=== PATIENT | male | born 1970 | race Caucasian/White ===

== ENCOUNTER 2017-03-02 14:22 | Inpatient (IN) | payer MEDICAID ==
[~2017-03-02] VITALS: Ht 165.1 cm; Wt 95.3 kg
--- NOTE | 2017-03-02 14:27 | NUR ---
Pt sent from urgent care for high blood pressure and heart rate. Pt went to urgent care for swollen testicles. Pt awake alert oriented denies any chest pain and no sob. Placed on monitor. Elevated HR md made aware. EKG reading at bedside. Placed pt in comfortable position and safety precaution in placed.
--- NOTE | 2017-03-02 14:40 | NUR ---
RAC #18 IV ACCESS BLOOD SAMPLE COLLECTED SENT TO LAB
--- NOTE | 2017-03-02 14:40 | NUR ---
at bedside for eval
--- NOTE | 2017-03-02 14:44 | NUR ---
XRAY AT BEDSIDE
--- NOTE | 2017-03-02 14:45 | NUR ---
JC=[id number] MADE AWARE.
[2017-03-02] MEDS ORDERED: MORPHINE SULFATE INJ 4 MG/ML DISP.SYRIN ONE (14:50)
[2017-03-02] MEDS ORDERED: LIDOCAINE 2% JEL UROJET 10 ML MM ONE (14:52)
--- NOTE | 2017-03-02 14:56 | NUR ---
PT MEDICATED ORDERED.
[2017-03-02] MEDS ORDERED: MORPHINE SULFATE INJ 2 MG/ML DISP.SYRIN IV ONE (15:00)
[2017-03-02 15:01] LABS: BASOPHILS # (AUTO) 0.1 /CMM (0.0-0.2); BASOPHILS % (AUTO) 0.7 % (0.0-2.0); EOSINOPHILS % (AUTO) 0.1 % (0.0-6.0); HEMATOCRIT 44 % (39-51); HEMOGLOBIN 14.8 g/dL (13.5-17.5); LYMPHOCYTES % (AUTO) 22.5 % (20.0-44.0); MEAN CORPUSCULAR HEMOGLOBIN 31 PG (26.0-33.0); MEAN CORPUSCULAR HGB CONC 33 g/dl (31.0-36.0); MEAN CORPUSCULAR VOLUME 94 fL (80-96); MONOCYTES # (AUTO) 0.6 /CMM (0.1-1.30); NEUTROPHILS # (AUTO) 6.2 /CMM (1.8-8.9); NEUTROPHILS % (AUTO) 69.7 % (43.0-81.0); PLATELET COUNT (AUTO) 235 /CMM (150-450); RED BLOOD CELL COUNT(AUTO) 4.73 MIL/uL (4.5-6.0); WHITE BLOOD COUNT (AUTO) 8.9 K/uL (4.3-11.0)
[2017-03-02 15:04] LABS: TROPONIN I 0.103 ng/mL (0.00-0.056)
--- NOTE | 2017-03-02 15:04 | NUR ---
delgado cath inserted as ordered.
[2017-03-02 15:13] LABS: ALBUMIN 3.5 g/dL (3.4-5.0); BILIRUBIN,DIRECT 0.4 mg/dL (0.0-0.2); BILIRUBIN,TOTAL 1.6 mg/dL (0.2-1.0); CREATININE 1.1 mg/dL (0.6-1.3); POTASSIUM 4.1 mmol/L (3.5-5.1); TOTAL PROTEIN, SERUM 7.5 g/dL (6.4-8.2)
[2017-03-02 15:17] LABS: INR 1.22 (0.87-1.13); PROTHROMBIN TIME 13.2 SECS (9.5-12.7)
--- NOTE | 2017-03-02 15:25 | NUR ---
CALLED NURSING SUP. FOR TELE BED
--- NOTE | 2017-03-02 15:47 | NUR ---
DR.RUTHERFORD ASAEL DOOR CLAMP OPERATOR
--- NOTE | 2017-03-02 15:51 | NUR ---
CALLED , TRANSFERRED CALL TO
[2017-03-02] MEDS ORDERED: FUROSEMIDE 40 MG/4 ML VIAL ONE (15:55)
[2017-03-02] MEDS ORDERED: FUROSEMIDE 40 MG/4 ML VIAL IV ONE (16:00)
--- NOTE | 2017-03-02 16:01 | NUR ---
DR LUIS AT BEDSIDE.
--- NOTE | 2017-03-02 16:23 | NUR ---
GAVE REPORT TO LAURYN COAL PIPELINE OPERATOR ROOM 322-2 . TRANSPORT VIA ACLS PROTOCOL.
--- NOTE | 2017-03-02 16:27 | NUR ---
HARMAN ECHO AT BEDSIDE
[2017-03-02] MEDS ORDERED: HYDROCODONE/APAP 5/325MG 1 EACH TABLET PO PRN (16:30)
[2017-03-02] MEDS ORDERED: hydrALAZINE HCL IV 20 MG VIAL IV PRN (16:30)
[2017-03-02] MEDS ORDERED: ZOLPIDEM TARTRATE 5 MG TABLET PO PRN (16:30)
[2017-03-02] MEDS ORDERED: MAG HYDROX/AL HYDROX/SIMETH 30 ML UDC PO PRN (16:30)
[2017-03-02] MEDS ORDERED: MORPHINE SULFATE INJ 2 MG/ML DISP.SYRIN IV PRN (16:30)
[2017-03-02] MEDS ORDERED: Z GUARD REMEDY 2 OZ OINT TP PRN (16:30)
[2017-03-02] MEDS ORDERED: MAGNESIUM HYDROXIDE 30 ML UDC PO PRN (16:30)
--- NOTE | 2017-03-02 16:50 | NUR ---
ASSISTANT CENTER MANAGER NOTES RECEIVED PT FROM ER IN STABLE CONDITION. PT WAS TRANSFERRED TO THE BE SAFELY. NO SOB OR COMPLAINTS OF CHEST PAIN AT THIS TIME. WILL CARRY OUT ORDERS, CONTINUE TO MONITOR AND COMPLETE ADMISSION.
[2017-03-02 17:00] VITALS: BP 147/117
[2017-03-02] MEDS ORDERED: hydrALAZINE HCL 10 MG TABLET PO PRN (17:30)
[2017-03-02] MEDS: CARVEDILOL 3.125 MG TABLET PO SCH (17:34)
[2017-03-02] MEDS: ENOXAPARIN SODIUM 40 MG/0.4 ML DISP.SYRIN SQ SCH (17:35)
[2017-03-02] MEDS: ASPIRIN 325 MG TABLET PO SCH (17:35)
--- NOTE | 2017-03-02 18:10 | NUR ---
TOOL AND DIE MAKER CLOSING NOTES PATIENT RESTING IN BED. A/O X4. PT SHOWED NO SIGNS OF DISTRESS/DISCOMFORT. IV ACCESS PATENT AND INTACT. DENIES ANY PAIN AT THIS TIME. KEPT COMFORTABLE, CLEAN, AND DRY. CALL LIGHT WITHIN REACH AND BED IN LOW POSITION WITH SIDE RAILS X2. FAMILY AT BEDSIDE. WILL ENDORSE TO NIGHTSHIFT NURSE FOR CHANTEL
--- NOTE | 2017-03-02 19:00 | NUR ---
MS RN OPENING NOTES RECEIVED PATIENT IN BED IN STABLE CONDITION, IV SITE INTACT WITH S/S OF INFILTRATION. NO S/S OF DISTRESS NO SOB, NO CHEST PAIN. NO S/S PAIN, SAFE FREE ENVIRONMENT PROVIDED FREE OF CLUTTERS, WILL CONTINUE TO MONITOR, ON LOW BED TO ENSURE SAFETY, CALL LIGHT WITHIN REACH.
[2017-03-02 20:00] VITALS: BP 144/102
[2017-03-02] MEDS: FUROSEMIDE 40 MG/4 ML VIAL IV SCH (21:06)
[2017-03-03] VITALS (7 sets, daily range): BP systolic 122–153; BP diastolic 75–97
--- NOTE | 2017-03-03 06:27 | NUR ---
CLINICAL RESEARCH SPEC CLOSING NOTES PATIENT COMFORTABLY ASLEEP AND EASILY AWAKEN,. FC INTACT DRAINING YELLOW VIA GRAVITY WITH NO SEDIMENTS NO HEMATURIA NO CLOUDINESS. IV SITE NO S/S OF INFILTRATED, PATIENT DENIES PAIN AT THIS TIME. RESPIRATIONS EVEN AND UNLABORED. NO S/S OF ACUTE DISTRESS, NO SOB, NO COUGH, NO CONGESTION, SKIN WARM AND DRY TO TOUCH, AFEBRILE, ALL NURSING CARE NEEDS PROVIDED AND RENDERED, NEEDS ATTENDED AND ANTICIPATED, KEPT CLEAN AND DRY AND COMFORTABLE, BLADDER NOT DISTENDED, GOOD SKIN CARE PROVIDED. ABDOMEN SOFT AND NON TENDER. NO C/O OF CONSTIPATION. ALL DUE MEDS WAS GIVEN TOLERATED. OFFLOAD AT ALL TIMES. FREQUENT VISUAL CHECK DONE FOR SAFETY EVERY 2 HOURS. SAFE HAZARD FREE ENVIRONMENT PROVIDED. CALL LIGHT WITHIN EASY TO REACH, ON LOW BED AT ALL TIMES TO ENSURE SAFETY, WILL ENDORSE TO THE NEXT SHIFT CONTINUE PLAN OF CARE. ATTACH TO TELE MONITOR SHOWING ST 125'S MD MADE AWARE.
[2017-03-03 06:44] LABS: BASOPHILS % (AUTO) 0.5 % (0.0-2.0); EOSINOPHILS # (AUTO) 0.1 /CMM (0.0-0.7); EOSINOPHILS % (AUTO) 0.8 % (0.0-6.0); HEMATOCRIT 41 % (39-51); HEMOGLOBIN 13.5 g/dL (13.5-17.5); LYMPHOCYTES # (AUTO) 2.2 /CMM (0.8-4.8); LYMPHOCYTES % (AUTO) 30.5 % (20.0-44.0); MEAN CORPUSCULAR HEMOGLOBIN 31 PG (26.0-33.0); MEAN CORPUSCULAR HGB CONC 33 g/dl (31.0-36.0); MEAN CORPUSCULAR VOLUME 94 fL (80-96); MONOCYTES # (AUTO) 0.6 /CMM (0.1-1.30); MONOCYTES % (AUTO) 8.4 % (2.0-12.0); NEUTROPHILS # (AUTO) 4.2 /CMM (1.8-8.9); NEUTROPHILS % (AUTO) 59.8 % (43.0-81.0); PLATELET COUNT (AUTO) 220 /CMM (150-450); RDW COEFFICIENT OF VARIATION 14.9 (11.5-15.0); RED BLOOD CELL COUNT(AUTO) 4.41 MIL/uL (4.5-6.0); WHITE BLOOD COUNT (AUTO) 7.1 K/uL (4.3-11.0)
[2017-03-03 07:29] LABS: CALCIUM, SERUM 8.3 mg/dL (8.5-10.1); MAGNESIUM 1.8 mg/dL (1.8-2.4); PHOSPHORUS 3.8 mg/dL (2.5-4.9); POTASSIUM 3.7 mmol/L (3.5-5.1)
--- NOTE | 2017-03-03 07:35 | NUR ---
RN OPENING NOTES TELE RECEIVED REPORT FROM LOGISTICS ANALYST NURSE. PATIENT IS IN BED. BED IN LOW POSITION, LOCKED AND 2 SIDE RAILS ARE UP. NO SIGNS OR SYMPTOMS OF DISTRESS. IV SITE IS INTACT AND POTENT. WILL CONTINUE TO MONITOR AND ASSESS PATIENT THROUGHOUT MY SHIFT.
[2017-03-03] MEDS: CARVEDILOL 3.125 MG TABLET PO SCH ×2 (08:56→17:20)
[2017-03-03] MEDS: ASPIRIN 325 MG TABLET PO SCH (08:56)
[2017-03-03] MEDS: PANTOPRAZOLE 40 MG TABLET.DR PO SCH (08:56)
[2017-03-03] MEDS: FUROSEMIDE 40 MG/4 ML VIAL IV SCH ×2 (08:57→21:18)
[2017-03-03] MEDS: NITROGLYCERIN PACKET 1 GM PACKET TOP SCH ×2 (08:57→21:18)
--- NOTE | 2017-03-03 09:00 | NUR ---
RN NOTES THOMAS THOMAS WAS REMOVED PER DR GARZA ORDER. THOMAS WAS EMPTIES, 250ML OUTPUT. BALLOON WAS DEFLATED WITH 10CC. PATIENT TOLERATED PROCEDURE WELL. NO SIGNS AND SYMPTOMS OF DISTRESS.
--- NOTE | 2017-03-03 09:25 | NUR ---
RN JAMEY TRANSFER PATIENT TRANSFERRED TO [facility]OU[facility] PER DR GARZA'S ORDERS. PATIENT WAS TRANSFERRED CONNECTED TO A MONITOR BY AN RN AND A LITHOPRESS OPERATOR. SINUS TACHY RHYTHM. REPORT GAVE TO KEVIN THE ACCEPTING RN.
[2017-03-03] MEDS ORDERED: AMIODARONE 900 MG in IV D5W 500 ML IV PRN (09:30)
[2017-03-03] MEDS ORDERED: AMIODARONE 150 MG in IV D5W 100 ML IV ONE (09:30)
--- NOTE | 2017-03-03 09:30 | NUR ---
ABDOUL Accepted patient from Telemetry transferred for Amiodarone infusion. Alert oriented, follows command, pleasant. vital stable other than his HR. Afib on monitor with RVR. Mckeon removed 1 hour ago per patient and awaits urination.
[2017-03-03 09:41] LABS: THYROID STIMULATING HORMONE 0.928 uIU/mL (0.358-3.74)
[2017-03-03] MEDS ORDERED: AMIODARONE 900 MG in IV D5W 482 ML IV PRN (10:30)
--- NOTE | 2017-03-03 17:00 | NUR ---
HR sustained on 140's Informed Cardiology of HR remain on 140's despite Amiodarone drip x 6 hours. Prelim Echo done EF 20%. aware, no new order.
[2017-03-03] MEDS: ONDANSETRON HCL/PF 4 MG/2 ML VIAL IVP PRN (19:12)
--- NOTE | 2017-03-03 20:00 | NUR ---
ABDOUL RN NOTES RECEIVED PT IN BED, AWAKE, A/O X4. ON OXYGEN VIA NC AT 2 LPM. GERSON WELL. TELE READS ST AT 127 BPM. ON AMIO DRIP, STARTED AT 1100. PT IS AMBULATORY AND HAS BRP. SKIN IS INTACT, SCROTAL SWELLING NOTED. RAC [address], DRESSING INTACT, NO PAIN VERBALIZED, FLUSHING WELL WITH BLOOD RETURN. CALL LIGHT WITHIN REACH. ALL NEEDS MET.
[2017-03-03] MEDS ORDERED: SECONDARY IV SET 1 EA INFUS.SET MC ONE (21:20)
[2017-03-03] MEDS: ENOXAPARIN SODIUM 40 MG/0.4 ML DISP.SYRIN SQ SCH (21:36)
[2017-03-03] MEDS: ACETAMINOPHEN 325 MG TABLET PO PRN (21:37)
[2017-03-04] VITALS: BP 122/83
[2017-03-04 04:00] VITALS: BP 131/93
[2017-03-04 07:20] LABS: BASOPHILS % (AUTO) 0.4 % (0.0-2.0); EOSINOPHILS % (AUTO) 0.1 % (0.0-6.0); HEMATOCRIT 41 % (39-51); HEMOGLOBIN 13.8 g/dL (13.5-17.5); LYMPHOCYTES # (AUTO) 2.7 /CMM (0.8-4.8); LYMPHOCYTES % (AUTO) 24.8 % (20.0-44.0); MEAN CORPUSCULAR HEMOGLOBIN 31 PG (26.0-33.0); MEAN CORPUSCULAR HGB CONC 33 g/dl (31.0-36.0); MEAN CORPUSCULAR VOLUME 94 fL (80-96); MONOCYTES # (AUTO) 0.8 /CMM (0.1-1.30); MONOCYTES % (AUTO) 7.8 % (2.0-12.0); NEUTROPHILS # (AUTO) 7.2 /CMM (1.8-8.9); NEUTROPHILS % (AUTO) 66.9 % (43.0-81.0); PLATELET COUNT (AUTO) 225 /CMM (150-450); RDW COEFFICIENT OF VARIATION 14.8 (11.5-15.0); RED BLOOD CELL COUNT(AUTO) 4.41 MIL/uL (4.5-6.0); WHITE BLOOD COUNT (AUTO) 10.8 K/uL (4.3-11.0)
[2017-03-04 08:00] VITALS: BP_SYST 130; BP_DIAS 100; BP_DIAS 101
[2017-03-04 08:16] LABS: ALBUMIN 3.1 g/dL (3.4-5.0); BILIRUBIN,TOTAL 1.1 mg/dL (0.2-1.0); CALCIUM, SERUM 8.6 mg/dL (8.5-10.1); CREATININE 1.7 mg/dL (0.6-1.3); MAGNESIUM 1.9 mg/dL (1.8-2.4); PHOSPHORUS 5.7 mg/dL (2.5-4.9); POTASSIUM 4.2 mmol/L (3.5-5.1); TOTAL PROTEIN, SERUM 6.6 g/dL (6.4-8.2)
[2017-03-04 08:20] LABS: TROPONIN I 0.08 ng/mL (0.00-0.056)
[2017-03-04] MEDS: FUROSEMIDE 40 MG/4 ML VIAL IV SCH (08:26)
[2017-03-04] MEDS: PANTOPRAZOLE 40 MG TABLET.DR PO SCH (08:26)
[2017-03-04] MEDS: NITROGLYCERIN PACKET 1 GM PACKET TOP SCH (08:27)
[2017-03-04] MEDS: CARVEDILOL 3.125 MG TABLET PO SCH ×2 (08:27→17:39)
[2017-03-04] MEDS: ASPIRIN 325 MG TABLET PO SCH (08:27)
--- NOTE | 2017-03-04 09:00 | NUR ---
Abnormal Labs Informed Dr. Gan regarding blood sugar on 400's and sodium drop to 129. Accucheck ordered
[2017-03-04] MEDS ORDERED: BUMETANIDE INJ 8 MG in IV NS 0.9% 48 ML IV ONE (11:00)
[2017-03-04] MEDS ORDERED: DEXTROSE 50%-WATER 50 ML DISP.SYRIN IV PRN (11:30)
[2017-03-04] MEDS ORDERED: INSULIN REGULAR, HUMAN 100 UNIT/ML 3 ML VIAL IV ONE (11:30)
[2017-03-04 12:00] VITALS: BP 119/79
[2017-03-04] MEDS: BLOOD SUGAR DIAGNOSTIC 1 EACH STRIP VI SCH ×3 (12:15→21:59)
[2017-03-04] MEDS: INSULIN REGULAR, HUMAN 100 UNIT/ML 3 ML VIAL SQ PRN ×2 (12:16→17:42)
[2017-03-04] MEDS ORDERED: IV NS 0.9% 250 ML IV ONE (12:34)
[2017-03-04] MEDS ORDERED: SECONDARY IV SET 1 EA INFUS.SET MC ONE (12:34)
[2017-03-04 16:00] VITALS: BP 115/74
[2017-03-04] MEDS: ACETAMINOPHEN 325 MG TABLET PO PRN (17:39)
--- NOTE | 2017-03-04 19:30 | NUR ---
ABDOUL/NOTES RECEIVED PT SITTING ON CHAIR,EATING DINNER.OFFERS NO COMPLAINTS.DENIES PAIN OR DISCOMFORT.MONITOR SHOWS STACH.
[2017-03-04 20:00] VITALS: BP 103/80
[2017-03-04] MEDS: ENOXAPARIN SODIUM 40 MG/0.4 ML DISP.SYRIN SQ SCH (20:38)
[2017-03-04] MEDS: NITROGLYCERIN 30 GM TUBE TP SCH (21:11)
[2017-03-04] MEDS: *INSULIN REGULAR(HUMULIN R)HUM 100 UNIT/ML VIAL SQ PRN (21:57)
[2017-03-05] VITALS: BP 106/75
[2017-03-05] MEDS: ACETAMINOPHEN 325 MG TABLET PO PRN (03:00)
--- NOTE | 2017-03-05 03:00 | NUR ---
ABDOUL NOTES TYLENOL 650 MG PO FOR C/0 H/A 02/01.ASSISTED TO BR TO VOID.BACK TO BED W/OUT INCIDENT.
[2017-03-05 04:00] VITALS: BP 112/90
[2017-03-05 06:51] LABS: BASOPHILS % (AUTO) 0.1 % (0.0-2.0); EOSINOPHILS % (AUTO) 0.1 % (0.0-6.0); HEMATOCRIT 41 % (39-51); HEMOGLOBIN 13.6 g/dL (13.5-17.5); LYMPHOCYTES # (AUTO) 1.9 /CMM (0.8-4.8); LYMPHOCYTES % (AUTO) 19.3 % (20.0-44.0); MEAN CORPUSCULAR HEMOGLOBIN 31 PG (26.0-33.0); MEAN CORPUSCULAR HGB CONC 33 g/dl (31.0-36.0); MEAN CORPUSCULAR VOLUME 95 fL (80-96); MONOCYTES # (AUTO) 0.9 /CMM (0.1-1.30); MONOCYTES % (AUTO) 9.3 % (2.0-12.0); NEUTROPHILS # (AUTO) 7.2 /CMM (1.8-8.9); NEUTROPHILS % (AUTO) 71.2 % (43.0-81.0); PLATELET COUNT (AUTO) 218 /CMM (150-450); RDW COEFFICIENT OF VARIATION 15.3 (11.5-15.0); RED BLOOD CELL COUNT(AUTO) 4.34 MIL/uL (4.5-6.0); WHITE BLOOD COUNT (AUTO) 10.1 K/uL (4.3-11.0)
[2017-03-05 07:07] LABS: ALBUMIN 2.9 g/dL (3.4-5.0); BILIRUBIN,TOTAL 0.9 mg/dL (0.2-1.0); CALCIUM, SERUM 8.7 mg/dL (8.5-10.1); CREATININE 1.6 mg/dL (0.6-1.3); PHOSPHORUS 5.3 mg/dL (2.5-4.9); POTASSIUM 4.1 mmol/L (3.5-5.1); TOTAL PROTEIN, SERUM 6.3 g/dL (6.4-8.2)
--- NOTE | 2017-03-05 07:15 | NUR ---
RN MS INITIAL NOTES RECEIVED REPORT AND PT FROM PM NURSE, PT RESTING IN BED, NO ACUTE S/S OF DISTRESS, ON 2L NC SAT ABOVE 97%, RT WRIST 20 G, IV INTACT NO S.S IF INFILTRATION, A&O X3, ALL NEEDS MET, ALL SAFETY MEASURES INITIATED, SIDE RAILS X2, BED LOW AND LOCKED, CALL LIGHT WITHIN REACH, WILL CONTINUE TO MONITOR.
[2017-03-05 08:00] VITALS: BP_SYST 108; BP_SYST 109; BP_DIAS 78
[2017-03-05] MEDS: NITROGLYCERIN 30 GM TUBE TP SCH ×2 (09:00→21:45)
[2017-03-05] MEDS: ASPIRIN 325 MG TABLET PO SCH (09:05)
[2017-03-05] MEDS: PANTOPRAZOLE 40 MG TABLET.DR PO SCH (09:05)
[2017-03-05] MEDS: BLOOD SUGAR DIAGNOSTIC 1 EACH STRIP VI SCH ×4 (09:05→22:07)
[2017-03-05] MEDS: CARVEDILOL 3.125 MG TABLET PO SCH ×2 (09:06→17:44)
[2017-03-05] MEDS: INSULIN REGULAR, HUMAN 100 UNIT/ML 3 ML VIAL SQ PRN ×3 (09:10→17:46)
[2017-03-05] MEDS: FUROSEMIDE 100 MG/10 ML VIAL IV SCH ×3 (12:28→18:39)
[2017-03-05 16:00] VITALS: BP 123/90
[2017-03-05 20:00] VITALS: BP_SYST 111; BP_SYST 132; BP_DIAS 66; BP_DIAS 98
[2017-03-05] MEDS: INSULIN DETEMIR 100 UNIT/ML CARTRIDGE SQ SCH (21:36)
[2017-03-05] MEDS: *INSULIN REGULAR(HUMULIN R)HUM 100 UNIT/ML VIAL SQ PRN (21:39)
[2017-03-05] MEDS: ENOXAPARIN SODIUM 40 MG/0.4 ML DISP.SYRIN SQ SCH (21:43)
[2017-03-05] MEDS ORDERED: INSULIN GLARGINE, 100 UNIT/ML CARTRIDGE SQ SCH (22:00)
[2017-03-06 04:00] VITALS: BP 130/88
[2017-03-06 05:13] VITALS: BP 122/85
[2017-03-06] MEDS: BLOOD SUGAR DIAGNOSTIC 1 EACH STRIP VI SCH ×4 (07:30→22:19)
[2017-03-06 07:37] LABS: BASOPHILS % (AUTO) 0.4 % (0.0-2.0); EOSINOPHILS % (AUTO) 0.2 % (0.0-6.0); HEMATOCRIT 42 % (39-51); HEMOGLOBIN 14.1 g/dL (13.5-17.5); LYMPHOCYTES # (AUTO) 2.4 /CMM (0.8-4.8); LYMPHOCYTES % (AUTO) 21.6 % (20.0-44.0); MEAN CORPUSCULAR HEMOGLOBIN 32 PG (26.0-33.0); MEAN CORPUSCULAR HGB CONC 34 g/dl (31.0-36.0); MEAN CORPUSCULAR VOLUME 94 fL (80-96); MONOCYTES # (AUTO) 1.1 /CMM (0.1-1.30); MONOCYTES % (AUTO) 9.9 % (2.0-12.0); NEUTROPHILS # (AUTO) 7.4 /CMM (1.8-8.9); NEUTROPHILS % (AUTO) 67.9 % (43.0-81.0); PLATELET COUNT (AUTO) 237 /CMM (150-450); RDW COEFFICIENT OF VARIATION 14.9 (11.5-15.0); RED BLOOD CELL COUNT(AUTO) 4.48 MIL/uL (4.5-6.0); WHITE BLOOD COUNT (AUTO) 10.9 K/uL (4.3-11.0)
[2017-03-06 08:00] VITALS: BP_SYST 124; BP_SYST 134; BP_DIAS 63; BP_DIAS 80
[2017-03-06 08:04] LABS: ALBUMIN 2.9 g/dL (3.4-5.0); BILIRUBIN,TOTAL 1.1 mg/dL (0.2-1.0); CALCIUM, SERUM 8.5 mg/dL (8.5-10.1); CREATININE 1.1 mg/dL (0.6-1.3); PHOSPHORUS 3.9 mg/dL (2.5-4.9); POTASSIUM 3.1 mmol/L (3.5-5.1); TOTAL PROTEIN, SERUM 6.4 g/dL (6.4-8.2)
[2017-03-06] MEDS: ASPIRIN 325 MG TABLET PO SCH (09:22)
[2017-03-06] MEDS: CARVEDILOL 3.125 MG TABLET PO SCH ×2 (09:22→16:47)
[2017-03-06] MEDS: PANTOPRAZOLE 40 MG TABLET.DR PO SCH (09:23)
[2017-03-06] MEDS: NITROGLYCERIN 30 GM TUBE TP SCH ×2 (09:33→22:10)
[2017-03-06] MEDS: INSULIN REGULAR, HUMAN 100 UNIT/ML 3 ML VIAL SQ PRN (09:46)
[2017-03-06] MEDS: POTASSIUM CHLORIDE 20 MEQ TAB.PRT.SR PO SCH ×3 (10:17→12:14)
[2017-03-06] MEDS: FUROSEMIDE 100 MG/10 ML VIAL IV SCH ×3 (10:20→16:47)
[2017-03-06] MEDS: ACETAMINOPHEN 325 MG TABLET PO PRN ×2 (10:20→19:40)
[2017-03-06] MEDS: *INSULIN REGULAR(HUMULIN R)HUM 100 UNIT/ML VIAL SQ PRN ×3 (13:02→22:17)
[2017-03-06 16:00] VITALS: BP 103/75
[2017-03-06 17:09] VITALS: BP 103/75
[2017-03-06 20:00] VITALS: BP_SYST 126; BP_DIAS 96; BP_DIAS 98
--- NOTE | 2017-03-06 20:00 | NUR ---
PT RECEIVED NOTE; PT RECEIVED ON BED WITHOUT ANY DISTRESS, PT IS A/O X 4 , IV INTACT AND PATENT, PT IS COMFORTABLE , C/O PAIN 3/10 , PRN TYLENOL PO GIVEN . BED IN LOWEST AND LOCKED POSITION, CALL LIGHT WITHIN REACH, WILL CONTINUE TO MONITOR.
[2017-03-06] MEDS: ENOXAPARIN SODIUM 40 MG/0.4 ML DISP.SYRIN SQ SCH (22:04)
[2017-03-06] MEDS: INSULIN DETEMIR 100 UNIT/ML CARTRIDGE SQ SCH (22:15)
[2017-03-07 04:00] VITALS: BP 125/98
[2017-03-07] MEDS: BLOOD SUGAR DIAGNOSTIC 1 EACH STRIP VI SCH ×4 (06:31→22:01)
--- NOTE | 2017-03-07 06:55 | NUR ---
RN END OF SHIFT NOTE; PT REMAINED STABLE DURING THE SHIFT, NO ANY DISTRESS NOTED, DENIED ANY PAIN, PERIPHERAL IV ON LAC 22 G INTACT AND PATENT, ALL PRESCRIBED MEDS TOLERATED WELL. ALL NEEDS ATTENDED PROMPTLY, KEPT CLEAN AND COMFORTABLE, CALL LIGHT WITHIN REACH .WILL ENDORSE TO NEXT SHIFT FOR CONTINUITY OF CARE.
[2017-03-07 07:26] LABS: BASOPHILS # (AUTO) 0.1 /CMM (0.0-0.2); BASOPHILS % (AUTO) 0.8 % (0.0-2.0); EOSINOPHILS % (AUTO) 0.4 % (0.0-6.0); HEMATOCRIT 41 % (39-51); HEMOGLOBIN 13.5 g/dL (13.5-17.5); LYMPHOCYTES # (AUTO) 2.4 /CMM (0.8-4.8); LYMPHOCYTES % (AUTO) 23.5 % (20.0-44.0); MEAN CORPUSCULAR HEMOGLOBIN 31 PG (26.0-33.0); MEAN CORPUSCULAR HGB CONC 33 g/dl (31.0-36.0); MEAN CORPUSCULAR VOLUME 94 fL (80-96); MONOCYTES # (AUTO) 1.1 /CMM (0.1-1.30); MONOCYTES % (AUTO) 11.2 % (2.0-12.0); NEUTROPHILS # (AUTO) 6.4 /CMM (1.8-8.9); NEUTROPHILS % (AUTO) 64.1 % (43.0-81.0); PLATELET COUNT (AUTO) 224 /CMM (150-450); RED BLOOD CELL COUNT(AUTO) 4.32 MIL/uL (4.5-6.0)
[2017-03-07 07:35] LABS: ALBUMIN 2.8 g/dL (3.4-5.0); CALCIUM, SERUM 8.5 mg/dL (8.5-10.1); PHOSPHORUS 3.8 mg/dL (2.5-4.9); POTASSIUM 3.3 mmol/L (3.5-5.1); TOTAL PROTEIN, SERUM 6.3 g/dL (6.4-8.2)
[2017-03-07 08:00] VITALS: BP 120/75
--- NOTE | 2017-03-07 08:00 | NUR ---
MS RN NOTE PATIENT IN BED, ALL NEEDS ATTENDED ALERT , ORIENTED , ABLE TO FEEDS SELF , LAC HL INTACT, NO S\S INFECTION NOTED ,BED IN LOWEST AND LOCKED POSITION CALL LIGHT WITHIN REACH , PLAN OF CAR4 DISCUSSED WITH PATIENT , WILL CONT TO MONITOR CLOSELY ,NO SOB NOTED
[2017-03-07 09:22] LABS: HEPATITIS A AB, IgM Negative (Negative); HEPATITIS A AB, TOTAL Negative (Negative); HEPATITIS B CORE AB, IgM Negative (Negative); HEPATITIS B CORE AB, TOTAL Negative (Negative); HEPATITIS B SURFACE AB Non Reactive (.); HEPATITIS C VIRUS AB <0.1 s/co ratio (0.0-0.9)
[2017-03-07] MEDS: ASPIRIN 325 MG TABLET PO SCH (09:47)
[2017-03-07] MEDS: PANTOPRAZOLE 40 MG TABLET.DR PO SCH (09:47)
[2017-03-07] MEDS: NITROGLYCERIN 30 GM TUBE TP SCH ×2 (09:48→21:52)
[2017-03-07] MEDS: CARVEDILOL 3.125 MG TABLET PO SCH ×2 (09:48→17:31)
--- NOTE | 2017-03-07 10:00 | NUR ---
MS RN NOTE SEEN BY DR GARZA AWARE THAT K 3.3 WITH NEW ORDER GIVEN
[2017-03-07] MEDS ORDERED: BUMETANIDE INJ 16 MG in IV NS 0.9% 16 ML IV ONE (11:30)
[2017-03-07] MEDS ORDERED: POTASSIUM CHLORIDE 20 MEQ TAB.PRT.SR PO SCH (11:30)
[2017-03-07 12:00] VITALS: BP 120/75
[2017-03-07] MEDS: *INSULIN REGULAR(HUMULIN R)HUM 100 UNIT/ML VIAL SQ PRN ×3 (12:32→22:01)
[2017-03-07] MEDS: POTASSIUM CHLORIDE 20 MEQ TAB.PRT.SR PO SCH ×4 (13:18→16:33)
[2017-03-07] MEDS ORDERED: POTASSIUM CL. PREMIX PERIPHER. 50 ML IV SCH (13:30)
--- NOTE | 2017-03-07 13:30 | NUR ---
MS RN NOTE STARTED ON BUMEX DRIP ORDERED, WILL CONT TO MONITOR CLOSELY
[2017-03-07 16:00] VITALS: BP 122/80
--- NOTE | 2017-03-07 17:00 | NUR ---
MS RNNOTE DIABETIC TEACING DONE AND INSTRUCTION GIVEN UNDERSTOOD, ALL NEEDS ATTENDED
--- NOTE | 2017-03-07 18:51 | NUR ---
TELE RNNOTE UP ON CHAIR , CONT ON BUMEX DRIP ORDERED
[2017-03-07 20:00] VITALS: BP 114/75
--- NOTE | 2017-03-07 20:00 | NUR ---
RN INITIAL NOTE; PT RECEIVED ON BED WITHOUT ANY DISTRESS, PT IS A/O X 4 ,BREATHING EVEN AND UNLABORED. IV INTACT AND PATENT, C/O TOLERABLE PAIN , NON PHARMACOLOGICAL INTERVENTIONS APPLIED. BED IN LOWEST AND LOCKED POSITION, CALL LIGHT WITHIN REACH, WILL CONTINUE TO MONITOR.
[2017-03-07] MEDS: ENOXAPARIN SODIUM 40 MG/0.4 ML DISP.SYRIN SQ SCH (21:48)
[2017-03-07] MEDS: INSULIN DETEMIR 100 UNIT/ML CARTRIDGE SQ SCH (21:59)
[2017-03-08] VITALS: BP 114/86
[2017-03-08 04:00] VITALS: BP 153/113
[2017-03-08] MEDS: ONDANSETRON HCL/PF 4 MG/2 ML VIAL IVP PRN ×3 (04:00→16:53)
[2017-03-08] MEDS: ACETAMINOPHEN 325 MG TABLET PO PRN (04:26)
[2017-03-08] MEDS ORDERED: FUROSEMIDE 40 MG/4 ML VIAL ONE (05:17)
[2017-03-08] MEDS ORDERED: DILTIAZEM HCL 25 MG IV ONE ×2 (05:17→05:33)
[2017-03-08] MEDS ORDERED: DILTIAZEM HCL 25 MG IV IV ONE (05:30)
[2017-03-08] MEDS ORDERED: DILTIAZEM HCL IV 125 MG in IV D5W 100 ML IV PRN (05:30)
[2017-03-08] MEDS ORDERED: FUROSEMIDE 40 MG/4 ML VIAL IV ONE (05:30)
[2017-03-08] MEDS ORDERED: DILTIAZEM HCL 50 MG IV ONE (05:31)
[2017-03-08] MEDS ORDERED: IV SET PRIMARY PUMP SET 1 EA INFUS.SET MC ONE ×2 (05:36→10:23)
[2017-03-08] MEDS ORDERED: IV D5W 100 ML IV ONE (05:36)
--- NOTE | 2017-03-08 05:37 | NUR ---
PT NOTED WITH VOMITING, COLD AND CLAMMY SKIN , SWEATING, V/S MONITORED , BP-153/113, HR 130, RR-16, TEMP 97.6, 02 SAT 98% ON 2 LPM , BLOOD SUGAR 141MG/DL, PT IS LETHARGIC BUT ABLE TO TALK AND ANSWER . PRN ZOFRAN GIVEN FOR VOMIT , STILL NAUSEOUS , STAT EKG SHOWS A-FLUTTER HR 130 , DENIED ANY CHEST PAIN AND DISCOMFORT, BREATHING EVEN AND UNLABORED, DR AHMADI INFORMED ,RECEIVED ORDER TO TRANSFER TO [facility] STATUS , GIVE CARDIZEM 10 MG IV PUSH, START CARDIZEM DRIP 10MG /HR WITHOUT TITRATION, LASIX 40 MEQ IV PUSH, ORDER READ BACK AND VERIFIED. WILL CONTINUE TO MONITOR.
--- NOTE | 2017-03-08 06:00 | NUR ---
RN NOTE; CARDIZEM DRIP STARTED WITH THE RATE OF 10 MG/HR WITHOUT TITRATION, BP-125/96, HR-125, RR-16, TEMP-98.2, PT MORE ALERT /ORIENTED .DENIED ANY CHEST PAIN AT THIS TIME. WILL CONTINUE OT MONITOR.
[2017-03-08] MEDS: INSULIN REGULAR, HUMAN 100 UNIT/ML 3 ML VIAL SQ PRN ×3 (06:45→16:52)
[2017-03-08] MEDS: BLOOD SUGAR DIAGNOSTIC 1 EACH STRIP VI SCH ×4 (06:47→21:15)
--- NOTE | 2017-03-08 07:00 | NUR ---
RN NOTE; RECEIVED PT ON BED , A/O x4. RESPIRATION EVEN AND UNLABORED, NO SOB NOTED, PT ON IS ON CONTINUE CARDIZEM DRIP 10MG /HR , ON TELE SHOWING HR 90'S A-FLUTTER , BRITTNI ANY NAUSEA VOMITING AT THIS TIME, SR UPx3, CALL LIGHT WITHIN EASY REACH , CONTINUE TO MONITOR PT CLOSELY AND NOTIFY MD FOR ANY SIGNIFICANT CHANGES .
--- NOTE | 2017-03-08 07:25 | NUR ---
RN EOS NOTE; PT IS ON CONTINUE CARDIZEM DRIP , SHOWING A-FIB/FLUTTER HR 90s ON TELE MONITOR , PT IS MORE AWAKE, A/O , SKIN WARM TO TOUCH , SATING 97% ON 2 LPM , BREATHING UNLABORED, DENIED ANY NAUSEA/VOMITING/CHEST PAIN. ALL NEEDS ATTENDED PROMPTLY, ENDORSED TO DAY SHIFT NURSE FOR CONTINUITY OF CARE.
[2017-03-08 08:00] VITALS: BP 136/78
[2017-03-08] MEDS: PANTOPRAZOLE 40 MG TABLET.DR PO SCH (08:59)
[2017-03-08] MEDS: ASPIRIN 325 MG TABLET PO SCH (08:59)
[2017-03-08] MEDS: CARVEDILOL 3.125 MG TABLET PO SCH ×2 (09:00→16:54)
[2017-03-08] MEDS: LOSARTAN POTASSIUM 50 MG TABLET PO SCH (09:04)
[2017-03-08] MEDS: FUROSEMIDE 40 MG TABLET PO SCH (09:04)
[2017-03-08] MEDS: POTASSIUM CHLORIDE 20 MEQ TAB.PRT.SR PO SCH (09:04)
[2017-03-08] MEDS: NITROGLYCERIN 30 GM TUBE TP SCH ×2 (09:05→21:00)
--- NOTE | 2017-03-08 09:15 | NUR ---
RN NOTES PT VOMITED ABOUT 50CC WHITISH STOMACH CONTENT , ZOFRAN IV GIVEN PER MD ORDER .CONTINUE TO MONITOR PT CLOSELY.
[2017-03-08 09:42] LABS: BASOPHILS % (AUTO) 0.2 % (0.0-2.0); HEMATOCRIT 47 % (39-51); HEMOGLOBIN 15.3 g/dL (13.5-17.5); LYMPHOCYTES # (AUTO) 1.4 /CMM (0.8-4.8); LYMPHOCYTES % (AUTO) 11.5 % (20.0-44.0); MEAN CORPUSCULAR HEMOGLOBIN 31 PG (26.0-33.0); MEAN CORPUSCULAR HGB CONC 33 g/dl (31.0-36.0); MEAN CORPUSCULAR VOLUME 95 fL (80-96); MONOCYTES # (AUTO) 0.4 /CMM (0.1-1.30); MONOCYTES % (AUTO) 3.7 % (2.0-12.0); NEUTROPHILS # (AUTO) 10.1 /CMM (1.8-8.9); NEUTROPHILS % (AUTO) 84.6 % (43.0-81.0); PLATELET COUNT (AUTO) 265 /CMM (150-450); RDW COEFFICIENT OF VARIATION 15.6 (11.5-15.0); WHITE BLOOD COUNT (AUTO) 11.9 K/uL (4.3-11.0)
--- NOTE | 2017-03-08 10:00 | NUR ---
RN NOTES CALL RECEIVED FROM PT'S REGARDING UPDATES ON PT STATUS . PT STATED THAT DR GARZA INFORMED THE THAT "PT IS GOING HOME TODAY" .
[2017-03-08 10:04] LABS: CALCIUM, SERUM 8.6 mg/dL (8.5-10.1); CREATININE 1.2 mg/dL (0.6-1.3); MAGNESIUM 2.1 mg/dL (1.8-2.4); PHOSPHORUS 4.5 mg/dL (2.5-4.9); POTASSIUM 4.2 mmol/L (3.5-5.1)
--- NOTE | 2017-03-08 10:20 | NUR ---
RN NOTES DR GARZA NOTIFIED REGARDING PT STATUS AND CARDIZEM GTT , NEW ORDER GIVEN , CONTINUE TO MONITOR PT CLOSELY .
[2017-03-08] MEDS ORDERED: AMIODARONE 900 MG in IV D5W 482 ML IV PRN (10:30)
[2017-03-08] MEDS ORDERED: AMIODARONE 150 MG in IV D5W 100 ML IV ONE (10:30)
--- NOTE | 2017-03-08 11:00 | NUR ---
RN NOTES PT STARTED ON AMIODARONE GTT PER DR GARZA ORDER , BP =121/94 HR 84 , PT BRITTNI NAUSEA AT THIS TIME , CONTINUE TO MONITOR .
[2017-03-08 12:00] VITALS: BP 102/72
[2017-03-08] MEDS ORDERED: SIMV20TA6 PO (13:24)
[2017-03-08] MEDS ORDERED: CARV3.122 PO (13:24)
[2017-03-08] MEDS ORDERED: Hydralazine Hcl PO (13:24)
[2017-03-08] MEDS ORDERED: FURO40TA5 PO (13:24)
[2017-03-08] MEDS ORDERED: INSU100I19 SQ (13:24)
[2017-03-08] MEDS ORDERED: Aspirin PO (13:24)
[2017-03-08] MEDS ORDERED: LOSA25TA13 PO (13:24)
[2017-03-08] MEDS ORDERED: GLIP5TAB13 PO (13:25)
[2017-03-08 16:00] VITALS: BP 102/72
--- NOTE | 2017-03-08 16:20 | NUR ---
RN NOTES PT ON TELE CONVERTED TO SR IN 7O'S. STABLE , FAMILY AT THE BEDSIDE ,
--- NOTE | 2017-03-08 17:00 | NUR ---
RN NOTES AMIODORON GTT DECREASED TO .5MG /MIN PER PROTOCAL , PT IS SR IN 70'S ON TELE .
--- NOTE | 2017-03-08 18:13 | NUR ---
RN NOTES PT AT REST , BRITTNI ANY NAUSEA AT THIS TIME , ON AMIO GTT AT .5MG/HR . ON TELE SR IN 70'S , SR UP x3, CALL LIGHT WITHIN EASY REACH . WILL BE ENDORSED TO INDUSTRIAL EQUIPMENT WIRER NURSE .
[2017-03-08 20:00] VITALS: BP_SYST 132; BP_SYST 99; BP_DIAS 70; BP_DIAS 73
[2017-03-08] MEDS: ENOXAPARIN SODIUM 40 MG/0.4 ML DISP.SYRIN SQ SCH (21:15)
[2017-03-08] MEDS: INSULIN DETEMIR 100 UNIT/ML CARTRIDGE SQ SCH (21:18)
[2017-03-08] MEDS: *INSULIN REGULAR(HUMULIN R)HUM 100 UNIT/ML VIAL SQ PRN (21:20)
[2017-03-09] VITALS: BP_SYST 89; BP_SYST 90; BP_DIAS 49
[2017-03-09 04:00] VITALS: BP 93/69
[2017-03-09 08:00] VITALS: BP 110/82
[2017-03-09] MEDS: LOSARTAN POTASSIUM 50 MG TABLET PO SCH (09:00)
[2017-03-09] MEDS: NITROGLYCERIN 30 GM TUBE TP SCH (09:00)
[2017-03-09] MEDS: CARVEDILOL 3.125 MG TABLET PO SCH ×2 (09:00→17:09)
[2017-03-09] MEDS: PANTOPRAZOLE 40 MG TABLET.DR PO SCH (09:08)
[2017-03-09] MEDS: ASPIRIN 325 MG TABLET PO SCH (09:08)
[2017-03-09] MEDS: POTASSIUM CHLORIDE 20 MEQ TAB.PRT.SR PO SCH (09:08)
[2017-03-09] MEDS: BLOOD SUGAR DIAGNOSTIC 1 EACH STRIP VI SCH ×4 (09:08→22:07)
[2017-03-09] MEDS: FUROSEMIDE 40 MG TABLET PO SCH (09:08)
[2017-03-09] MEDS: ONDANSETRON HCL/PF 4 MG/2 ML VIAL IVP PRN (09:56)
[2017-03-09] MEDS: AMIODARONE HCL 200 MG TABLET PO SCH ×2 (10:00→17:09)
[2017-03-09 12:00] VITALS: BP 138/65
[2017-03-09 13:28] LABS: CREATININE 2.8 mg/dL (0.6-1.3); POTASSIUM 5.1 mmol/L (3.5-5.1)
[2017-03-09] MEDS ORDERED: LORAZEPAM 1 MG TABLET PO PRN (15:30)
--- NOTE | 2017-03-09 15:30 | NUR ---
FRONT DESK REPRESENTATIVE: SEEN BY PSYCHIATRIST, DEMETRIO SEVERE DEPRESSION, ORDERS ATIVAN PRN PO. PT'S AT BEDSIDE, REFUSED TO GIVE ATIVAN AT THIS TIME.
[2017-03-09 16:00] VITALS: BP 134/99
--- NOTE | 2017-03-09 16:48 | NUR ---
CASTER HELPER: PT HAVING CONTINUE EPISODES OF EMESIS AFTER HE LITTLE EAT, NOTIFIED DR BHATIA ORDERS TO DO CT ABDOMEN WITHOUT CONTRAST , ALREADY DONE, WILL WAIT FOR RESULTS.
[2017-03-09 20:00] VITALS: BP 126/98
--- NOTE | 2017-03-09 20:00 | NUR ---
MS RN NOTES RECEIVED PTS ON BED AWAKE ALERT AND VERBALLY RESPONSIVE , NO SOB NO DISTRESS NOTED ,FAMILY AT BEDSIDE , UPDATED WITH PTS CURRENT CONDITION , FAMILY REQUESTING IF THEY CAN TALK TO DR GREG HURST MEDICATION -AMIODARONE , WILL ENDORSE TO RN DAY SHIFT REGARDING THE CONCERN ,CT ABDOMEN DONE RESULT RELAYED TO DR AHMADI , NO EPISODE OF N&V AT HIS TIME .ALL DUE MEDS GIVEN ORDER, ALL NEEDS ATTENDED TOO CALL LIGHT WITHIN REACH KEPT PTS DRY CLEAN AND COMFORTABLE.WILL CONTINUE TO MONITOR PTS.V/S STABLE AFEBRILE.
[2017-03-09] MEDS: ACETAMINOPHEN 325 MG TABLET PO PRN (20:27)
[2017-03-09] MEDS: ENOXAPARIN SODIUM 40 MG/0.4 ML DISP.SYRIN SQ SCH (21:07)
[2017-03-09] MEDS: INSULIN DETEMIR 100 UNIT/ML CARTRIDGE SQ SCH (22:07)
[2017-03-09] MEDS: *INSULIN REGULAR(HUMULIN R)HUM 100 UNIT/ML VIAL SQ PRN (22:08)
--- NOTE | 2017-03-09 23:00 | NUR ---
RN NOTES RECEIVED REPORT FROM LULI, FOR PATIENT'S CONTINUITY OF CARE. PATIENT IN BED, SLEEPING COMFORTABLY, NO DISTRESS NOTED. HOB ELEVATED TOLERATED BY PATIENT. ON 2LPM OF O2 VIA NC, RESPIRATION IS EVEN AND UNLABORED WITH NO SOB. WILL MONITOR PATIENT. CALL LIGHT IN REACH.
--- NOTE | 2017-03-09 23:00 | NUR ---
MS RN NOTES TRANSFER CARE &,REPORT GIVEN TO NANCY LACY FOR CONTINUITY OF CARE, PTS V/S STABLE/AFEBRILE . AT THIS TIME NO C/O PAIN NOTED.
[2017-03-10 04:00] VITALS: BP 129/85
--- NOTE | 2017-03-10 05:51 | NUR ---
MS RN NOTES BLOOD SUGAR FOR 10 PM IS 196- LEVEMIR 22 UNITS GIVEN +REGULAR INSULIN 3 UNITS PER SLIDING SCALE . APPLE JUICE AND SANDWICH OFFERED . WILL CONTINUE TO MONITOR.
--- NOTE | 2017-03-10 06:50 | NUR ---
RN CLOSING NOTES PATIENT WITH NO ACUTE DISTRESS OBSERVED OVERNIGHT. PATIENT SLEPT COMFORTABLY. NO C/O PAIN AND DISCOMFORT. NO DISTRESS OBSERVED. PATIENT REFUSED BS CHECK AT THIS TIME, WILL ENDORSE FOR MONITORING. PATIENT NOTED WITH POOR APPETITE, NO SIGNS OF HYPO/HYPERGLYCEMIA. PATIENT'S NEEDS ANTICIPATED AND MET. SAFETY AND COMFORT ENSURED. BED ALARM IN PLACE, BED IN LOW AND LOCKED POSITION. ASSISTED NEEDED WITH ADLS. WILL ENDORSE ACCORDINGLY FOR CONTINUITY OF CARE.
[2017-03-10 07:18] LABS: CREATININE 3.4 mg/dL (0.6-1.3); POTASSIUM 4.9 mmol/L (3.5-5.1)
--- NOTE | 2017-03-10 08:00 | NUR ---
ms rn note patient in bed ,all needs attended alert,orientedxe3 , verbally responsive ,no c\o pain , no nausea ,assisted to eat for breakfast , sitting at bedside .ate 15% of breakfast no vomiting noted , , encourage to drink . lt ac hl intact no s]s infection noted , bed in lowest and locked position mother art bedside requesting to hold amiodarone po stated that want to see dr lópez, vs stable plan of care discussed with patient
--- NOTE | 2017-03-10 09:00 | NUR ---
MS RN NOTE SEEN BY DR BHATIA SPOKE WITH FAMILY
[2017-03-10] MEDS: ASPIRIN 325 MG TABLET PO SCH (09:23)
[2017-03-10] MEDS: POTASSIUM CHLORIDE 20 MEQ TAB.PRT.SR PO SCH (09:23)
[2017-03-10] MEDS: PANTOPRAZOLE 40 MG TABLET.DR PO SCH (09:24)
[2017-03-10] MEDS: FUROSEMIDE 40 MG TABLET PO SCH (09:24)
[2017-03-10] MEDS: CARVEDILOL 3.125 MG TABLET PO SCH ×2 (09:25→17:35)
[2017-03-10] MEDS: LOSARTAN POTASSIUM 50 MG TABLET PO SCH (09:26)
[2017-03-10] MEDS: INSULIN REGULAR, HUMAN 100 UNIT/ML 3 ML VIAL SQ PRN ×3 (09:29→17:39)
--- NOTE | 2017-03-10 09:30 | NUR ---
ms rn note seen by dr chelle rothman,notified that bun 84 also patent refusing to have amiodarone
[2017-03-10] MEDS: BLOOD SUGAR DIAGNOSTIC 1 EACH STRIP VI SCH ×4 (09:31→22:17)
[2017-03-10] MEDS ORDERED: LEVOFLOXACIN 750 MG /D5W 150ML 750 MG in PREMIX 1 EA IV SCH (10:30)
[2017-03-10] MEDS ORDERED: MECLIZINE HCL 12.5 MG TABLET PO PRN (10:30)
--- NOTE | 2017-03-10 11:30 | NUR ---
MS RN NOTE SPOKE WITH DR GARZA AND AWARE THAT PATIENT REFUSING AMIODARONE, STATED THAT WILL CHECK IT OUT
--- NOTE | 2017-03-10 12:00 | NUR ---
MS CRUZ NOTE ENDORSED CARE [facility] UNIT Addendum: 03/10/17 at 1619 by YOBANY CARL RN ENDORSED CARE TO NANCY WOLF
[2017-03-10 20:20] VITALS: BP 112/83
[2017-03-10] MEDS: ENOXAPARIN SODIUM 30 MG/0.3 ML DISP.SYRIN SQ SCH (22:11)
[2017-03-10] MEDS: *INSULIN REGULAR(HUMULIN R)HUM 100 UNIT/ML VIAL SQ PRN (22:14)
[2017-03-10] MEDS: INSULIN DETEMIR 100 UNIT/ML CARTRIDGE SQ SCH (22:16)
[2017-03-11] VITALS: BP 112/83
[2017-03-11] MEDS: BLOOD SUGAR DIAGNOSTIC 1 EACH STRIP VI SCH ×4 (05:32→21:36)
[2017-03-11] MEDS: PANTOPRAZOLE 40 MG TABLET.DR PO SCH (05:33)
[2017-03-11] MEDS: INSULIN REGULAR, HUMAN 100 UNIT/ML 3 ML VIAL SQ PRN ×3 (05:38→18:01)
[2017-03-11 06:05] VITALS: BP_SYST 102; BP_SYST 123; BP_DIAS 66; BP_DIAS 73
[2017-03-11 06:48] VITALS: BP 102/73
--- NOTE | 2017-03-11 07:30 | NUR ---
RN NOTES RECEIVED PATIENT IN BED ALERT, AWAKE, ORIENTED X4 WITH BREATHING NORMAL, EVEN AND UNLABORED. NO SOB NOTED. ON 2L O2 VIA NC, SATURATING WELL. NO ACUTE DISTRESS NOTED. IV IS PATENT AND INTACT, NO INFILTRATION NOTED. BOWEL SOUND PRESENT. PULSES PRESENT. KEPT CLEAN, DRY AND COMFORTABLE. ALL NEEDS ATTENDED. SAFETY MEASURE OBSERVED. CALL LIGHT WITH IN REACH. WILL CONT TO MONITOR.
[2017-03-11 07:38] LABS: BASOPHILS % (AUTO) 0.2 % (0.0-2.0); EOSINOPHILS % (AUTO) 0.2 % (0.0-6.0); HEMATOCRIT 45 % (39-51); HEMOGLOBIN 14.9 g/dL (13.5-17.5); LYMPHOCYTES # (AUTO) 2.3 /CMM (0.8-4.8); LYMPHOCYTES % (AUTO) 22.2 % (20.0-44.0); MEAN CORPUSCULAR HEMOGLOBIN 31 PG (26.0-33.0); MEAN CORPUSCULAR HGB CONC 33 g/dl (31.0-36.0); MEAN CORPUSCULAR VOLUME 95 fL (80-96); MONOCYTES # (AUTO) 1.2 /CMM (0.1-1.30); MONOCYTES % (AUTO) 11.6 % (2.0-12.0); NEUTROPHILS # (AUTO) 6.8 /CMM (1.8-8.9); NEUTROPHILS % (AUTO) 65.8 % (43.0-81.0); PLATELET COUNT (AUTO) 202 /CMM (150-450); RED BLOOD CELL COUNT(AUTO) 4.75 MIL/uL (4.5-6.0); WHITE BLOOD COUNT (AUTO) 10.3 K/uL (4.3-11.0)
[2017-03-11 07:53] LABS: CREATININE 2.5 mg/dL (0.6-1.3); MAGNESIUM 2.5 mg/dL (1.8-2.4); PHOSPHORUS 5.8 mg/dL (2.5-4.9); POTASSIUM 4.1 mmol/L (3.5-5.1)
[2017-03-11 08:00] VITALS: BP 105/80
[2017-03-11] MEDS: CARVEDILOL 3.125 MG TABLET PO SCH ×2 (09:00→17:56)
[2017-03-11] MEDS: ASPIRIN 325 MG TABLET PO SCH (09:47)
[2017-03-11 09:56] LABS: OSMOLALITY,URINE 474 mOS/kg (340-1090)
[2017-03-11 10:07] LABS: CREATININE, URINE 65.9 MG/DL (30.0-125.0); URINE SODIUM, RANDOM < 5 mmol/l (40-220)
[2017-03-11 10:10] LABS: APPEARANCE,URINE CLOUDY (CLEAR); BILIRUBIN,URINE NEGATIVE (NEGATIVE); BLOOD, URINE NEGATIVE Ery/uL (NEGATIVE); COLOR,URINE YELLOW (YELLOW); KETONES,URINE NEGATIVE (NEGATIVE); LEUKOCYTE ESTERASE ,URINE NEGATIVE (NEGATIVE); NITRITE, URINE NEGATIVE (NEGATIVE); PROTEIN,URINE NEGATIVE (NEGATIVE); UGLUCOSE 2+ mg/dL (NEGATIVE)
[2017-03-11 10:19] LABS: RBC,URINE 0-2 /HPF (0-2); WBC,URINE NONE SEEN /HPF (0-3)
[2017-03-11 10:20] LABS: ADD URINE CULTURE YES; BACTERIA,URINE None seen /HPF (None Seen); SQUAMOUS EPITHELIAL CELL,UR Rare /HPF (None Seen); URIC ACID CRYSTALS,URINE Moderate /HPF (None Seen); YEAST,URINE Many /HPF (None Seen)
[2017-03-11 10:21] LABS: URINE AMORPHOUS PHOSPHATES Few /HPF (None Seen)
[2017-03-11 16:00] VITALS: BP_SYST 107; BP_SYST 122; BP_DIAS 69; BP_DIAS 81
--- NOTE | 2017-03-11 19:42 | NUR ---
RN NOTES PATIENT ENDORSED TO NEXT SHIFT IN STABLE CONDITION FOR CONTINUITY OF CARE.
--- NOTE | 2017-03-11 19:44 | NUR ---
RN INITIAL NOTES RECEIVED PATIENT IN BED , SLEEPING, BUT EASILY AROUSABLE TO NAME. PATIENT IS ALERT AND ORIENTED X4 WITH BREATHING NORMAL, EVEN AND UNLABORED. NO SOB NOTED, TOLERATING ROOM AIR WELL. NO ACUTE DISTRESS NOTED. IV IS PATENT AND INTACT, NO INFILTRATION NOTED. BOWEL SOUNDS PRESENT. PULSES PRESENT. KEPT CLEAN, DRY AND COMFORTABLE. ALL NEEDS ATTENDED. SAFETY MEASURES OBSERVED. CALL LIGHT WITHIN EASY REACH. WILL CONTINUE TO CLOSELY MONITOR.
[2017-03-11 20:00] VITALS: BP 107/79
[2017-03-11 20:22] LABS: *HCV QUANT HCV Not Detected IU/mL (.)
[2017-03-11] MEDS: ENOXAPARIN SODIUM 30 MG/0.3 ML DISP.SYRIN SQ SCH (21:38)
[2017-03-11] MEDS: INSULIN DETEMIR 100 UNIT/ML CARTRIDGE SQ SCH (21:38)
[2017-03-11] MEDS: *INSULIN REGULAR(HUMULIN R)HUM 100 UNIT/ML VIAL SQ PRN (21:39)
[2017-03-12] VITALS (14 sets, daily range): BP systolic 100–129; BP diastolic 66–96
--- NOTE | 2017-03-12 06:52 | NUR ---
RN CLOSING NOTES PATIENT RESTING COMFORTABLY IN BED. NO ACUTE EVENTS OVERNIGHT. WILL ENDORSE THE PATIENT TO THE AM SHIFT NURSE FOR CHANTEL
--- NOTE | 2017-03-12 07:15 | NUR ---
RN INITIAL NOTE PT RECEIVED IN BED SLEEPING, NO S/S OF PAIN OR DISCOMFORT. NO S/S OF RESPIRATORY DISTRESS OR SOB. SATING WELL ON ROOM AIR. SKIN IS WARM AND DRY TO TOUCH. LEFT FA IV 22G, FLUSHED AND PATENT. DRESSING C/D/I. SAFETY MEASURES IMPLEMENTED. BED IN LOCKED, LOW POSITION, TWO SIDE RAILS UP. CALL LIGHT AND BELONGINGS WITHIN REACH. WILL CONTINUE TO MONITOR.
[2017-03-12 08:03] LABS: BASOPHILS % (AUTO) 0.1 % (0.0-2.0); EOSINOPHILS % (AUTO) 0.4 % (0.0-6.0); HEMATOCRIT 47 % (39-51); HEMOGLOBIN 15.5 g/dL (13.5-17.5); LYMPHOCYTES # (AUTO) 2.3 /CMM (0.8-4.8); LYMPHOCYTES % (AUTO) 21.3 % (20.0-44.0); MEAN CORPUSCULAR HEMOGLOBIN 31 PG (26.0-33.0); MEAN CORPUSCULAR HGB CONC 33 g/dl (31.0-36.0); MEAN CORPUSCULAR VOLUME 95 fL (80-96); MONOCYTES # (AUTO) 1.1 /CMM (0.1-1.30); MONOCYTES % (AUTO) 10.6 % (2.0-12.0); NEUTROPHILS # (AUTO) 7.2 /CMM (1.8-8.9); NEUTROPHILS % (AUTO) 67.6 % (43.0-81.0); PLATELET COUNT (AUTO) 207 /CMM (150-450); RDW COEFFICIENT OF VARIATION 15.2 (11.5-15.0); RED BLOOD CELL COUNT(AUTO) 4.96 MIL/uL (4.5-6.0); WHITE BLOOD COUNT (AUTO) 10.6 K/uL (4.3-11.0)
[2017-03-12 08:21] LABS: CALCIUM, SERUM 8.3 mg/dL (8.5-10.1); CREATININE 1.8 mg/dL (0.6-1.3); MAGNESIUM 2.5 mg/dL (1.8-2.4); POTASSIUM 3.8 mmol/L (3.5-5.1)
[2017-03-12] MEDS: BLOOD SUGAR DIAGNOSTIC 1 EACH STRIP VI SCH ×4 (08:46→22:29)
[2017-03-12] MEDS: PANTOPRAZOLE 40 MG TABLET.DR PO SCH (08:46)
[2017-03-12] MEDS: ASPIRIN 325 MG TABLET PO SCH (08:46)
[2017-03-12] MEDS: CARVEDILOL 3.125 MG TABLET PO SCH ×2 (08:47→16:45)
--- NOTE | 2017-03-12 09:30 | NUR ---
MS RN NOTE Received patient from Chel CRUZ. Patient with PT at bedside, therapy on going.
--- NOTE | 2017-03-12 10:00 | NUR ---
MS RN NOTE PT at bedside, patient able to sit on the chair, needed assistance on transferring, risk for fall. Family at bedside. Patient and family encouraged to get assistance when patient needs to be transferred.
--- NOTE | 2017-03-12 10:20 | NUR ---
MS RN NOTE S/E by Dr. Foreman, family at bedside, discussed re: the POC. All family and patient's concerned were answered.
[2017-03-12] MEDS: INSULIN REGULAR, HUMAN 100 UNIT/ML 3 ML VIAL SQ PRN ×2 (12:19→17:47)
--- NOTE | 2017-03-12 14:30 | NUR ---
ABDOUL RN NOTE Spoke with Dr. Jimenez, informed MRI result verbally, said patient has multiple strokes old and new infarcts and also hemorrhage. Called Dr. Callahan but no call back, left message to exchange. Called Dr. Medellin and ordered to transfer to [facility].
--- NOTE | 2017-03-12 15:50 | NUR ---
ABDOUL RN NOTE Transferred patient to ICU via bed and ACLS protocol. No any significant changes noted during the transfer, VSS. Report given to Tiffanie CRUZ for CHANTEL. Patient has no c/o discomfort at this time. With dizziness, offered Antivert, said not now. L:eft message to Dr. Callahan per 's request to talk to neuro, left message.
--- NOTE | 2017-03-12 16:00 | NUR ---
ICU/RN- RECEIVED PT. FROM MS-1 PER PROTOCOL BY BED. NURSING FOCUS:ALTERED CEREBRAL TISSUE PERFUSION R/T DIAGNOSIS:STROKE. ROUTINE ICU ADMISSION CARE INITIATED. PT. IS AWAKE, ALERT, EXPRESSIVE OF NEEDS. BREATHING SPONTANEOUSLY TO ROOM AIR. ALERT, ORIENTED X3, PUPILS ARE PERRL AT 3MM EACH.ANGULO SPONTANEOUSLY. WILL CHECK NEURO STATUS Q2HRS. PER PROTOCOL.AFEBRILE. DENIES PAIN OR DISTRESS.
--- NOTE | 2017-03-12 17:00 | NUR ---
ICU/RN-PT. ASLEEP, ON ROOM AIR.NOTED TO DESATURATE TO THE 80,S PT. WOKE UP AND SATS. STARTED TO GO UP TO 95%, NOT IN ANY DISTRESS.
--- NOTE | 2017-03-12 18:00 | NUR ---
ICU/RN- FOOD TRAY SERVED. PT. IS ON DIABETIC DIET.ATE 50% ,GERSON WELL.NO S/S OF ASPIRATION. PRECAUTIONS TAKEN.
--- NOTE | 2017-03-12 19:00 | NUR ---
ICU/RN-PT. STATUS UNCHANGED, REPORT GIVEN TO NANCY BLISS.
--- NOTE | 2017-03-12 21:18 | NUR ---
SIDE LASTER TACK. INITIAL ASSESSMENT. RECEIVED THE PT REST ON THE BED. AWAKE, ALERT, FOLLOW COMMANDS. DIRECTOR CARDIOVASCULAR SHOWING NSR. PT ON ROOM AIR. SAT 98%. NO ACUTE DISTRESS NOTED.WILFRIDO LOWER EXTREMITY SWOLLEN. IV LT HAND 22G. SALINE LOCK. AFEBRILE. HOB ELEVATED. WILL CONTINUE TO MONITOR VITALS.
[2017-03-12] MEDS: ATORVASTATIN 10 MG TABLET PO SCH (22:13)
[2017-03-12] MEDS: INSULIN DETEMIR 100 UNIT/ML CARTRIDGE SQ SCH (22:16)
[2017-03-12] MEDS: *INSULIN REGULAR(HUMULIN R)HUM 100 UNIT/ML VIAL SQ PRN (22:27)
[2017-03-13] VITALS (34 sets, daily range): BP systolic 90–142; BP diastolic 60–109
--- NOTE | 2017-03-13 03:33 | NUR ---
CERTIFIED MASTER LOCKSMITH.AM CARE, ORAL CARE, BED BATH GIVEN. LINEN CHANGED, PT ON ROOM AIR. SAT 98%. NO ACUTE DIST DISTRESS NOTED, RETAIL ACCOUNT SPECIALIST SHOWING NSR, IV LT HAND SALINE LOCK. AFEBRILE. HOB ELEVATED TURN AND REPOSITION Q2H. WILL CONTINUE TO MONITOR VITALS.
[2017-03-13 04:49] LABS: BASOPHILS # (AUTO) 0.1 /CMM (0.0-0.2); BASOPHILS % (AUTO) 1.4 % (0.0-2.0); EOSINOPHILS # (AUTO) 0.1 /CMM (0.0-0.7); EOSINOPHILS % (AUTO) 0.9 % (0.0-6.0); HEMATOCRIT 46 % (39-51); HEMOGLOBIN 14.9 g/dL (13.5-17.5); LYMPHOCYTES # (AUTO) 2.2 /CMM (0.8-4.8); LYMPHOCYTES % (AUTO) 21.6 % (20.0-44.0); MEAN CORPUSCULAR HEMOGLOBIN 31 PG (26.0-33.0); MEAN CORPUSCULAR HGB CONC 33 g/dl (31.0-36.0); MEAN CORPUSCULAR VOLUME 95 fL (80-96); MONOCYTES % (AUTO) 9.8 % (2.0-12.0); NEUTROPHILS # (AUTO) 6.8 /CMM (1.8-8.9); NEUTROPHILS % (AUTO) 66.3 % (43.0-81.0); PLATELET COUNT (AUTO) 206 /CMM (150-450); RDW COEFFICIENT OF VARIATION 15.5 (11.5-15.0); RED BLOOD CELL COUNT(AUTO) 4.82 MIL/uL (4.5-6.0); WHITE BLOOD COUNT (AUTO) 10.2 K/uL (4.3-11.0)
[2017-03-13 05:04] LABS: CALCIUM, SERUM 8.1 mg/dL (8.5-10.1); CREATININE 1.2 mg/dL (0.6-1.3); MAGNESIUM 2.3 mg/dL (1.8-2.4); PHOSPHORUS 3.2 mg/dL (2.5-4.9); POTASSIUM 3.6 mmol/L (3.5-5.1)
[2017-03-13 08:28] LABS: *RAPID PLASMA REAGIN QUAL Non Reactive (Non Reactive)
[2017-03-13] MEDS: BLOOD SUGAR DIAGNOSTIC 1 EACH STRIP VI SCH ×4 (08:54→21:58)
[2017-03-13] MEDS: PANTOPRAZOLE 40 MG TABLET.DR PO SCH (08:54)
[2017-03-13] MEDS: ASPIRIN 325 MG TABLET PO SCH ×2 (08:56→16:38)
[2017-03-13] MEDS: CARVEDILOL 3.125 MG TABLET PO SCH ×2 (09:00→18:24)
[2017-03-13] MEDS: DRONEDARONE HYDROCHLORIDE 400 MG TABLET PO SCH ×2 (09:00→18:24)
--- NOTE | 2017-03-13 09:29 | NUR ---
DR. BHATIA ON THE UNIT. DISCSUSSES WITH PT AND THE PT'S [id number] AT BEDSIDE. SHE IS SUSPECTING THE PATIENT MAY HAVE HEMATOMACHROSIS THAT MAY HAVE CAUSED ALL HIS SYMPTOMS IN THE HOSPITAL. HE WOULD NEED A LIVER BIOPSY FOR THIS. DR. BHATIA ORDERS CASE MGMT CONSULT TO TRANSFER TO HIGHER LEVEL OF CARE FOR LIVER BIOPSY TO DEFINITELY DEFINE THE DX. SHE ALSO PUTS IN LAB SCREENING ORDERS. I CALLED AND LEFT A MESSAGE WITH CATTLE DEALER MERYL PER DR. BHATIA.
--- NOTE | 2017-03-13 09:34 | NUR ---
CALLED LAB FOR TRANSFFERRIN SATURATION LAB TEST IT IS NOT IN [facility]. THEY STATE THEY WILL CHECK AND CALL BACK. Addendum: 03/13/17 at 0936 by GRAYSON BASHIR RN Amended: Links added.
[2017-03-13 09:36] LABS: IRON, SERUM 35 ug/dl (50-175); TOTAL IRON BINDING CAPACITY 261 ug/dl (250-450)
[2017-03-13 09:51] LABS: FERRITIN 524 ng/mL (8-388)
--- NOTE | 2017-03-13 11:07 | NUR ---
Social service consult requested by ICU ELAINE Cavanaugh for medical insurance. Per H&P report by Dr. Gan, pt. is a 47-year-old male with history of diabetes mellitus who presents with dyspnea on exertion worsening for the past 2 weeks, 2 pillow orthopnea, lower extremity and scrotal edema worsening for the past 2 weeks. Patient denies any previous symptoms, has been compliant with his medications generally. No fever, no chills, nausea no vomiting. Pt's father recently after complications of CHF. SHIVA and NANCY Cedeno met with pt's [id number] Roz Hopson. Pt. was being seen by physical therapy. Roz informed SHIVA that pt. has applied for [employer] and it is currently pending. Pt. lives with his Chel who has Cerebral Palsy and is the primary freight clerk for his . 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 Pt. has no children. Pt's Chel works as well but is unable to go to work due to pt. being hospitalized. Pt's Chel is unable to care for pt. at home due to her disability. According to Dr. Foreman, pt. might need a higher level of care for a liver biopsy. NANCY Cedeno in case management is aware of the insurance and medical condition of the pt.
--- NOTE | 2017-03-13 11:15 | NUR ---
PHYSICAL THERAPY IN TO WORK WITH PT. NOTED HIS GAIT IS IMBALANCED WITH LEFT SIDED WEAKNESS. BUT HE IS ABLE AMBULATE WITH ASSISTANCE. HE WILL NEED ACUTE REHAB RECOMMENDED BY BOTH NEUROLOGIST (ON THE UNIT) AND THE PHYSICAL THERAPIST. ALSO NOTED THAT HIS SPEECH IS SOMEWHAT DELAYED, BUT HE IS ABLE TO ANSWER QUESTIONS IN RELATION TO ORIENTATION AOX4. NEUROLOGIST AWARE, DR. COLLIER WAS ON THE UNIT AND DID HER OWN COMPREHENSIVE EVALUATION AND EXPLANATION ABOUT THE STROKE, WITH SUBSEQUENT SHORT AND CONFERENCE TRANSLATOR CARE PLANS. MOTHER IN LAW AT BEDSIDE.
[2017-03-13] MEDS: INSULIN REGULAR, HUMAN 100 UNIT/ML 3 ML VIAL SQ PRN ×2 (13:11→18:27)
--- NOTE | 2017-03-13 13:16 | NUR ---
DR. NANDO TRIVEDI FOR ASPIRIN 325.
--- NOTE | 2017-03-13 20:00 | NUR ---
Patient awake alert and oriented x 4.Patient verbalized i just woke up.VS stable.SR per monitor. With bilateral lower extremities edema and kept elevated.Assisted to bedside chair.Dinner served. Denies pain or dizziness just sob on exertion.With O2 2L NC in place.O2 SAT 98%.Safety maintained with call light at bedside.Patient instructed not to get up without assistance.Verbalized understanding.
--- NOTE | 2017-03-13 21:00 | NUR ---
Patient ate 100% of diet.Assisted eli to bed and made comfortable.Voiding per urinal.
[2017-03-13] MEDS: ATORVASTATIN 10 MG TABLET PO SCH (21:58)
[2017-03-13] MEDS: INSULIN DETEMIR 100 UNIT/ML CARTRIDGE SQ SCH (22:00)
[2017-03-13] MEDS: *INSULIN REGULAR(HUMULIN R)HUM 100 UNIT/ML VIAL SQ PRN (22:02)
[2017-03-14] VITALS (30 sets, daily range): BP systolic 88–143; BP diastolic 49–90
--- NOTE | 2017-03-14 | NUR ---
Patient sleeping on rounds.VS remains stable.SR.NAD NOTED.
--- NOTE | 2017-03-14 04:00 | NUR ---
Patient awake sitting at the edge of the bed.Assisted to bedside chair.Still with sob in exertion. VS stable.Voiding well.Verbalized a sudden onset of dizziness lasting for 3 seconds when standing. Assisted back to bed and made comfortable.Bed bath done.Complete linens changed.Safety precaution maintained with call light at bedside.
[2017-03-14 04:48] LABS: BASOPHILS % (AUTO) 0.4 % (0.0-2.0); EOSINOPHILS # (AUTO) 0.2 /CMM (0.0-0.7); EOSINOPHILS % (AUTO) 1.4 % (0.0-6.0); HEMATOCRIT 46 % (39-51); HEMOGLOBIN 14.8 g/dL (13.5-17.5); LYMPHOCYTES # (AUTO) 2.7 /CMM (0.8-4.8); LYMPHOCYTES % (AUTO) 22.4 % (20.0-44.0); MEAN CORPUSCULAR HEMOGLOBIN 31 PG (26.0-33.0); MEAN CORPUSCULAR HGB CONC 32 g/dl (31.0-36.0); MEAN CORPUSCULAR VOLUME 96 fL (80-96); MONOCYTES # (AUTO) 1.2 /CMM (0.1-1.30); MONOCYTES % (AUTO) 10.4 % (2.0-12.0); NEUTROPHILS # (AUTO) 7.7 /CMM (1.8-8.9); NEUTROPHILS % (AUTO) 65.4 % (43.0-81.0); PLATELET COUNT (AUTO) 197 /CMM (150-450); RED BLOOD CELL COUNT(AUTO) 4.78 MIL/uL (4.5-6.0); WHITE BLOOD COUNT (AUTO) 11.8 K/uL (4.3-11.0)
[2017-03-14 05:11] LABS: CALCIUM, SERUM 8.1 mg/dL (8.5-10.1); CREATININE 1.4 mg/dL (0.6-1.3); MAGNESIUM 2.4 mg/dL (1.8-2.4); PHOSPHORUS 3.5 mg/dL (2.5-4.9); POTASSIUM 3.8 mmol/L (3.5-5.1)
--- NOTE | 2017-03-14 07:26 | NUR ---
INITIAL MARKETING CAMPAIGN ANALYST NOTE RCVD PT SLEEPING AROUSED TO NAME, A/O X4, SHOWING NO S/O DISTRESS OR C/O PAIN AT THIS TIME. WILFRIDO. PUPILS PERRLA, STRENGHT EQUAL ON BLE AND BUE, WEAK GAIT OBSERVED UPON TRANSFER TO CHAIR WITH FWW. SR ON TELE. LEFT FA #22 IV SITE PAINFUL UPON FLUSHING WILL REPLACE LINE. VOIDING TO URINAL. WILL CONTINUE TO MONITOR PT FOR SAFETY AND COMFORT. CALL LIGHT WITHIN REACH. BED IN LOW AND LOCKED POSITION.
[2017-03-14] MEDS: BLOOD SUGAR DIAGNOSTIC 1 EACH STRIP VI SCH ×4 (07:30→22:14)
[2017-03-14] MEDS: PANTOPRAZOLE 40 MG TABLET.DR PO SCH (07:56)
[2017-03-14] MEDS: DRONEDARONE HYDROCHLORIDE 400 MG TABLET PO SCH ×2 (08:00→16:53)
[2017-03-14] MEDS: CARVEDILOL 3.125 MG TABLET PO SCH ×2 (08:00→16:53)
[2017-03-14] MEDS: ASPIRIN 325 MG TABLET PO SCH (08:00)
[2017-03-14] MEDS ORDERED: IV SET PRIMARY PUMP SET 1 EA INFUS.SET MC ONE (10:15)
[2017-03-14] MEDS ORDERED: SECONDARY IV SET 1 EA INFUS.SET MC ONE (10:15)
[2017-03-14] MEDS ORDERED: IV NS 0.9% 250 ML IV ONE (10:15)
[2017-03-14] MEDS: LEVOFLOXACIN 750 MG /D5W 150ML 750 MG in PREMIX 1 EA IV SCH (10:21)
[2017-03-14] MEDS ORDERED: BISACODYL SUPP (10 MG) 10 MG/SUPP.RECT SUPP.RECT RC PRN (10:30)
--- NOTE | 2017-03-14 10:37 | NUR ---
Social service consult requested by Dr. Foreman for State Disability application. SHIVA met with pt's ivdren-jy-mom Roz Hopson who inquired about the State Disability application. SHIVA informed Roz she can bring her the application, however, pt. would have to get the physician report signed by his primary care doctor. However, SHIVA will ask pt's physician Dr. Foreman to complete the physician form of the application. Addendum: 03/14/17 at 1154 by VANESSA SHANNON SHIVA gave NANCY Cedeno, state disability application for Dr. Foreman to complete the physician form.
--- NOTE | 2017-03-14 11:34 | NUR ---
DIRECTOR OF CHILD WELFARE SERVICES NOTE PT HYPOTENSIVE SBP 80'S BP CHECKED MANUALLY STILL 86/67 MAP ABOVE 65. ALFIE, [employer] ENGINEER INFORMED. PT ASYMPTOMATIC. WILL CONTINUE TO MONITOR PT.
[2017-03-14] MEDS: INSULIN REGULAR, HUMAN 100 UNIT/ML 3 ML VIAL SQ PRN ×2 (12:17→16:58)
--- NOTE | 2017-03-14 13:23 | NUR ---
MANAGER PERFORMANCE NOTE SPOKE WITH DR. BHATIA INFORMED HER OF PT'S LOW BP. SHE RECOMMENDED TO GIVE IVF. ORDER ENTERED AND CARRIED OUT. WILL CONTINUE TO MONITOR. Addendum: 03/14/17 at 1535 by SHANA MARINELLI RN STATE DISABILITY FORM FILLED OUT AND SIGNED BY DR. BHATIA. COMPLETED FORM HANDED TO PT'S MOTHER.
[2017-03-14] MEDS ORDERED: IV NS 0.9% 1,000 ML BAG IV ONE (14:00)
[2017-03-14] MEDS: IV NS 0.9% 1,000 ML IV PRN (14:35)
--- NOTE | 2017-03-14 15:33 | NUR ---
EMERGENCY VEHICLE TECHNICIAN NOTE PT RESTING IN BED SHOWING NO S/O DISTRESS OR DIZZINESS WITHOUT MOVEMENT. VITAL SIGNS STABLE. IVF INFUSING. WILL CONTINUE TO MONITOR.
[2017-03-14] MEDS ORDERED: NITROGLYCERIN 30 GM TUBE TP SCH (17:00)
--- NOTE | 2017-03-14 17:44 | NUR ---
BLANKET WINDER OPERATOR NOTE REPORT GIVEN TO AFSATU, RN PT WILL BE TRANSFERRED TO ROOM 323-2. PT AWAKE AND ALERT. SR ON TELE. FAMILY AT BEDSIDE. NO S/O DISTRESS OR C/O PAIN VERBALIZED.
--- NOTE | 2017-03-14 18:32 | NUR ---
PERSONNEL REPRESENTATIVE NOTE DR. WHITLOCK AT BEDSIDE ASSESSING PT. HE WAS INFORMED OF PT'S LOW BP EPISODE EARLIER TODAY. AGREES TO CONTINUE GENTLE HYDRATION OF 1L NS AT 50ML/HR AND CARVEDILOL HELD THIS PM. WILL CONTINUE TO MONITOR PT UNTIL CARE TRANSFERRED TO [facility], RN ON .
--- NOTE | 2017-03-14 18:40 | NUR ---
SLATE MIXER NOTES PT WAS SAFELY TRANSFERRED TO THE UNIT IN STABLE CONDITION. FAMILY AT BEDSIDE. WILL ENDORSE TO NIGHTSHIFT NURSE FOR CHANTEL AND COMPLETION OF ADMISSION PROCESS
--- NOTE | 2017-03-14 18:40 | NUR ---
TRANSFER ICU NOTE PT TRANSFERRED TO 3W PER PROTOCOL. FAMILY AT BEDSIDE. VITAL SIGNS STABLE. [facility], RN RCVD PT VIA BED.
--- NOTE | 2017-03-14 19:33 | NUR ---
TELE/RN OPENING NOTES RECEIVED PATIENT WITH FAMILY MEMBER AT BEDSIDE. TRANSFERED FROM ICU. ALERT, ORIENTED X3. NO S/S OF SOB OR DISTRESS OBSERVED. FOR MONITORING S/P NSTEMI. NO PAIN OBSERVED AND VERBALIZED WILL CHECK B/P AND TELE READING FOR ANY S/S TO REPORT USES URINAL. AMBULATORU WITH ASSISTANCE ON CARB CONTROL DIET. IV ON LEFT AC GAUGE 20. WILL ATTEND TO NEEDS. SKIN INTACT. CALL LIGHTS WITHIN REACH. WILL CONTINUE CHANTEL AND MONITOR.
[2017-03-14] MEDS: ATORVASTATIN 10 MG TABLET PO SCH (20:59)
[2017-03-14] MEDS ORDERED: AMIODARONE HCL 200 MG TABLET PO SCH (21:00)
[2017-03-14] MEDS: INSULIN DETEMIR 100 UNIT/ML CARTRIDGE SQ SCH (22:13)
[2017-03-14] MEDS: *INSULIN REGULAR(HUMULIN R)HUM 100 UNIT/ML VIAL SQ PRN (22:42)
[2017-03-15] VITALS (8 sets, daily range): BP systolic 114–145; BP diastolic 71–96
[2017-03-15 07:02] LABS: CALCIUM, SERUM 8.2 mg/dL (8.5-10.1); CREATININE 1.3 mg/dL (0.6-1.3); MAGNESIUM 2.3 mg/dL (1.8-2.4); PHOSPHORUS 3.6 mg/dL (2.5-4.9)
[2017-03-15 07:07] LABS: BASOPHILS % (AUTO) 0.2 % (0.0-2.0); EOSINOPHILS # (AUTO) 0.1 /CMM (0.0-0.7); EOSINOPHILS % (AUTO) 0.9 % (0.0-6.0); HEMATOCRIT 43 % (39-51); HEMOGLOBIN 14.2 g/dL (13.5-17.5); LYMPHOCYTES # (AUTO) 2.6 /CMM (0.8-4.8); LYMPHOCYTES % (AUTO) 22.2 % (20.0-44.0); MEAN CORPUSCULAR HEMOGLOBIN 32 PG (26.0-33.0); MEAN CORPUSCULAR HGB CONC 33 g/dl (31.0-36.0); MEAN CORPUSCULAR VOLUME 96 fL (80-96); MONOCYTES # (AUTO) 1.1 /CMM (0.1-1.30); MONOCYTES % (AUTO) 9.5 % (2.0-12.0); NEUTROPHILS # (AUTO) 7.8 /CMM (1.8-8.9); NEUTROPHILS % (AUTO) 67.2 % (43.0-81.0); PLATELET COUNT (AUTO) 177 /CMM (150-450); RDW COEFFICIENT OF VARIATION 15.6 (11.5-15.0); RED BLOOD CELL COUNT(AUTO) 4.49 MIL/uL (4.5-6.0); WHITE BLOOD COUNT (AUTO) 11.6 K/uL (4.3-11.0)
--- NOTE | 2017-03-15 07:36 | NUR ---
TELE/RN CLOSING NOTES PATIENT ALERT, ORIENTED X3. AWAKE, ALERTX2. REQUIRE ASSISTANCE TO TRANSFER FROM BED TO CHAIR SAFELY. ASSISTED . WEIGHED IN SCALE , ENDORSE TO AM RN REGARDING CHANTEL.
--- NOTE | 2017-03-15 07:40 | NUR ---
MS RN RECEIVED ON BED, SLEEPING, NOT IN ANY FORM OF DISTRESS, RESPIRATIONS EVEN AND UNLABORED,NO SOB NOTED, LUNGS ARE CLEAR, ABDOMEN SOFT,POSITIVE BOWEL SOUNDS, DENIES PAIN AT THIS TIME,ALL NEEDS ATTENDED.
--- NOTE | 2017-03-15 08:30 | NUR ---
MS CRUZ BREAKFAST SERVED,DUE MEDS GIVEN.TOLERATED WELL.
[2017-03-15] MEDS: BLOOD SUGAR DIAGNOSTIC 1 EACH STRIP VI SCH ×4 (08:38→21:45)
[2017-03-15] MEDS: ASPIRIN 325 MG TABLET PO SCH (08:38)
[2017-03-15] MEDS: CARVEDILOL 3.125 MG TABLET PO SCH ×2 (08:39→17:04)
[2017-03-15] MEDS: PANTOPRAZOLE 40 MG TABLET.DR PO SCH (08:40)
[2017-03-15] MEDS: LEVOFLOXACIN 750 MG /D5W 150ML 750 MG in PREMIX 1 EA IV SCH (11:08)
--- NOTE | 2017-03-15 11:10 | NUR ---
MS RN WAS SEEN AND EXAMINED BY DR. JANNETTE SHARPE AND CARRIED OUT.
[2017-03-15] MEDS: INSULIN REGULAR, HUMAN 100 UNIT/ML 3 ML VIAL SQ PRN ×3 (12:51→21:43)
[2017-03-15 17:03] LABS: CALCIUM, SERUM 7.9 mg/dL (8.5-10.1); CREATININE 1.4 mg/dL (0.6-1.3); POTASSIUM 3.8 mmol/L (3.5-5.1)
[2017-03-15] MEDS: AMIODARONE HCL 200 MG TABLET PO SCH (17:04)
--- NOTE | 2017-03-15 18:18 | NUR ---
MS RN ON BED,NO DISTRESS NOTED, ALL NEEDS ATTENDED.
--- NOTE | 2017-03-15 19:00 | NUR ---
RN NOTE RECEIVED REPORT. PT AAOX4. NO C/O OF ANY PAIN OR DISCOMFORT. BREATHING NON-LABORED AND EVEN. DENIES SOB/CP. IV INTACT AND PATENT. TELE SHOWS SR IN 70'S. SAFETY AND COMFORT MEASURES RENDERED, WILL CONT TO MONITOR.
[2017-03-15] MEDS: INSULIN DETEMIR 100 UNIT/ML CARTRIDGE SQ SCH (21:42)
[2017-03-15] MEDS: ATORVASTATIN 10 MG TABLET PO SCH (21:45)
[2017-03-16] VITALS (7 sets, daily range): BP systolic 126–155; BP diastolic 89–108
[2017-03-16] MEDS: IV NS 0.9% 1,000 ML IV PRN (03:03)
--- NOTE | 2017-03-16 05:05 | NUR ---
RN NOTE NOTIFIED MD CHRONOMETER ADJUSTER ABOUT PT BEING IN A-FLUTTER AT 110. NO NEW ORDERS AT THIS TIME. WILL CONT TO MONITOR. Addendum: 03/16/17 at 0510 by JASIEL NUNES RN PT REPORTS NO DIZZINESS/CP/SOB. NON-DIAPHORETIC ON NC @ 2L
--- NOTE | 2017-03-16 06:28 | NUR ---
RN NOTE PT AAOX4, FORGETFUL. NO C/O CP/SOB/DIZZINESS AT THIS TIME. ON 2L NC, NO S/S OF RESPIRATORY DISTRESS. PT NON-DIAPHOETIC, SKIN WARM TO TOUCH. RESTING COMFORTABLY IN BED. TELE SHOWING A-FLUTTER 110'S, AWARE AROUND 0500, WITH NO NEW ORDERS. IV INTACT AND PATENT TOLERATING FLUIDS WELL. ALL NEEDS ATTENDED TO, CALL LIGHT IN REACH. WILL CONT TO MONITOR.
[2017-03-16 07:26] LABS: BASOPHILS % (AUTO) 0.2 % (0.0-2.0); EOSINOPHILS # (AUTO) 0.2 /CMM (0.0-0.7); EOSINOPHILS % (AUTO) 1.7 % (0.0-6.0); HEMATOCRIT 45 % (39-51); HEMOGLOBIN 14.6 g/dL (13.5-17.5); LYMPHOCYTES # (AUTO) 2.1 /CMM (0.8-4.8); MEAN CORPUSCULAR HEMOGLOBIN 31 PG (26.0-33.0); MEAN CORPUSCULAR HGB CONC 32 g/dl (31.0-36.0); MEAN CORPUSCULAR VOLUME 95 fL (80-96); MONOCYTES # (AUTO) 0.9 /CMM (0.1-1.30); MONOCYTES % (AUTO) 7.5 % (2.0-12.0); NEUTROPHILS # (AUTO) 8.3 /CMM (1.8-8.9); NEUTROPHILS % (AUTO) 72.6 % (43.0-81.0); PLATELET COUNT (AUTO) 189 /CMM (150-450); RDW COEFFICIENT OF VARIATION 15.4 (11.5-15.0); RED BLOOD CELL COUNT(AUTO) 4.75 MIL/uL (4.5-6.0); WHITE BLOOD COUNT (AUTO) 11.5 K/uL (4.3-11.0)
--- NOTE | 2017-03-16 07:30 | NUR ---
initial note a+o x4, verbalizes needs. skin warm and dry. LAC iv patent. no complaints of pain, no SOB, no chest pain. tele monitor reading ST 117. continent with urinal. discussed plan of care. call light in reach.
[2017-03-16 07:50] LABS: CALCIUM, SERUM 8.2 mg/dL (8.5-10.1); CREATININE 1.2 mg/dL (0.6-1.3); MAGNESIUM 1.9 mg/dL (1.8-2.4); POTASSIUM 3.7 mmol/L (3.5-5.1)
[2017-03-16] MEDS: CARVEDILOL 3.125 MG TABLET PO SCH ×2 (08:35→17:17)
[2017-03-16] MEDS: ASPIRIN 325 MG TABLET PO SCH (08:35)
[2017-03-16] MEDS: PANTOPRAZOLE 40 MG TABLET.DR PO SCH (08:35)
[2017-03-16] MEDS: AMIODARONE HCL 200 MG TABLET PO SCH ×2 (08:36→17:16)
[2017-03-16] MEDS: BLOOD SUGAR DIAGNOSTIC 1 EACH STRIP VI SCH ×4 (08:36→21:51)
[2017-03-16] MEDS: LEVOFLOXACIN 750 MG /D5W 150ML 750 MG in PREMIX 1 EA IV SCH (09:03)
[2017-03-16] MEDS: INSULIN REGULAR, HUMAN 100 UNIT/ML 3 ML VIAL SQ PRN ×3 (12:11→21:59)
[2017-03-16 17:17] LABS: CALCIUM, SERUM 7.8 mg/dL (8.5-10.1); CREATININE 1.1 mg/dL (0.6-1.3); POTASSIUM 3.9 mmol/L (3.5-5.1)
--- NOTE | 2017-03-16 19:30 | NUR ---
RN NOTES; RECEIVED PATIENT AWAKE ON BED LYING COMFORTABLY,RELAX,NO COMPLAINTS OF ANY PAIN OR DISCOMFORT,VERY COOPERATIVE,A/OX4,ON O2 AT 2L/MIN, SCD WORKING,TELE-SINUS TACHYCARDIA-115;FALL, SAFETY AN ASPIRATION PRECAUTION OBSERVE,CALL LIGHT WITHIN REACH, BED LOW AND LOCKED.
--- NOTE | 2017-03-16 19:34 | NUR ---
closing note patient stable at end of shift. breathing and LOC wnl. denies dizziness and chest pain. endorsed to night nurse. call light in reach
[2017-03-16] MEDS: INSULIN DETEMIR 100 UNIT/ML CARTRIDGE SQ SCH (21:54)
[2017-03-16] MEDS: ATORVASTATIN 10 MG TABLET PO SCH (21:57)
--- NOTE | 2017-03-16 22:12 | NUR ---
RN NOTES; ABLE TO SLEEP AT SHORT INTERVALS,BLOOD SUGAR CHECK-143, INSULIN GIVEN PER SCALE AND HS DOSE SCHEDULED, OFFERED MIDNIGHT SNACK, WILL CONTINUE TO MONITOR FOR SIGN OF HYPER/HYPOGLYCEMIA, CALL LIGHT WITHIN REACH.
[2017-03-17] VITALS (8 sets, daily range): BP systolic 124–138; BP diastolic 84–105
--- NOTE | 2017-03-17 03:30 | NUR ---
RN NOTES; ASLEEP AT SHORT INTERVALS, NO PAIN OR DISCOMFORT, CALL LIGHT WITH IN REACH.
[2017-03-17] MEDS: BLOOD SUGAR DIAGNOSTIC 1 EACH STRIP VI SCH ×4 (05:50→21:40)
[2017-03-17] MEDS: INSULIN REGULAR, HUMAN 100 UNIT/ML 3 ML VIAL SQ PRN ×3 (05:51→16:34)
--- NOTE | 2017-03-17 05:52 | NUR ---
RN NOTES; BLOOD SUGAR CHECKED-101 NO INSULIN GIVEN PER SCALE,PATIENT IS SITTING COMFORTABLY AT THE BED SIDE CHAIR, NO COMPLAINTS.
--- NOTE | 2017-03-17 06:45 | NUR ---
RN NOTES: SITTING ON HIS BED SIDE, NO PAIN OR ANY DISCOMFORT, ENDORSE TO INCOMING SHIFT HIS BLOOD PRESSURE IS A BIT ELEVATED, ON CLOSE MONITORING,STILL ON A.FIB RATE-81.CALL LIGHT WITHIN REACH.
--- NOTE | 2017-03-17 07:30 | NUR ---
FURNACE OPERATOR AND TENDER NOTES RECEIVED PT AWAKE SITTING ON THE CHAIR, ALERT AND OX3, BREATHING EVEN AND NON LABORED, PT DENIES ANY PAIN OR HEADACHE AT THIS TIME. ON TELE MONITORING HR 72. PATIENT REMINDED TO USE HIS CALL LIGHT IF HE NEED HELP/ASSISTANCE. WILL CONTINUE TO MONITOR.
[2017-03-17] MEDS: ASPIRIN 325 MG TABLET PO SCH (08:08)
[2017-03-17] MEDS: AMIODARONE HCL 200 MG TABLET PO SCH ×2 (08:08→16:29)
[2017-03-17] MEDS: PANTOPRAZOLE 40 MG TABLET.DR PO SCH (08:08)
[2017-03-17] MEDS: CARVEDILOL 3.125 MG TABLET PO SCH ×2 (08:09→16:29)
[2017-03-17 08:11] LABS: BASOPHILS % (AUTO) 0.4 % (0.0-2.0); EOSINOPHILS # (AUTO) 0.1 /CMM (0.0-0.7); EOSINOPHILS % (AUTO) 1.7 % (0.0-6.0); HEMATOCRIT 43 % (39-51); HEMOGLOBIN 13.9 g/dL (13.5-17.5); LYMPHOCYTES # (AUTO) 2.5 /CMM (0.8-4.8); LYMPHOCYTES % (AUTO) 27.9 % (20.0-44.0); MEAN CORPUSCULAR HEMOGLOBIN 31 PG (26.0-33.0); MEAN CORPUSCULAR HGB CONC 32 g/dl (31.0-36.0); MEAN CORPUSCULAR VOLUME 95 fL (80-96); MONOCYTES # (AUTO) 0.8 /CMM (0.1-1.30); MONOCYTES % (AUTO) 9.3 % (2.0-12.0); NEUTROPHILS # (AUTO) 5.4 /CMM (1.8-8.9); NEUTROPHILS % (AUTO) 60.7 % (43.0-81.0); PLATELET COUNT (AUTO) 181 /CMM (150-450); RDW COEFFICIENT OF VARIATION 15.6 (11.5-15.0); RED BLOOD CELL COUNT(AUTO) 4.48 MIL/uL (4.5-6.0); WHITE BLOOD COUNT (AUTO) 8.9 K/uL (4.3-11.0)
--- NOTE | 2017-03-17 08:30 | NUR ---
OTHER SPORTS COACH OR INSTRUCTOR NOTES ALL DUE MEDS GIVEN. LATEST BP 129/84 HR 72. DENIES ANY DISCOMFORT AT THIS TIME. WILL CONTINUE TO MONITOR
[2017-03-17 08:36] LABS: MAGNESIUM 1.9 mg/dL (1.8-2.4); PHOSPHORUS 3.3 mg/dL (2.5-4.9); POTASSIUM 3.9 mmol/L (3.5-5.1)
--- NOTE | 2017-03-17 09:00 | NUR ---
MACHINE FILLER SERVICER NOTES S/B DR. BHATIA WITH NO NEW ORDERS MADE.
[2017-03-17] MEDS: LEVOFLOXACIN 750 MG /D5W 150ML 750 MG in PREMIX 1 EA IV SCH (09:53)
[2017-03-17] MEDS ORDERED: SECONDARY IV SET 1 EA INFUS.SET MC ONE (10:13)
[2017-03-17 17:30] LABS: CALCIUM, SERUM 7.8 mg/dL (8.5-10.1); CREATININE 1.2 mg/dL (0.6-1.3); POTASSIUM 4.3 mmol/L (3.5-5.1)
--- NOTE | 2017-03-17 19:15 | NUR ---
RN OPEN NOTES RECEIVED PATIENT AWAKE IN BED. A/O X3. NO SIGNS OF DISTRESS OR DISCOMFORT. BREATHING EVEN AND UNLABORED. ON 2LPM O2 VIA NC. ON TELE WITH SR HR 74 NOTED. IV ACCESS IN LAC, PATENT AND INTACT, NO SIGNS OF REDNESS OR INFILTRATION. DENIES ANY PAIN. BED IN LOW LOCKED POSITION WITH SIDE RAILS X2. CALL LIGHT WITHIN REACH. WILL CONTINUE TO MONITOR.
--- NOTE | 2017-03-17 19:26 | NUR ---
DUMPLING MACHINE OPERATOR NOTES ALL NEEDS ATTENDED AND ANTICIPATED. NO C/O MADE. ENDORSED TO INCOMING SHIFT FOR CONTINUITY OF CARE.
[2017-03-17] MEDS: ATORVASTATIN 10 MG TABLET PO SCH (21:39)
[2017-03-17] MEDS: *INSULIN REGULAR(HUMULIN R)HUM 100 UNIT/ML VIAL SQ PRN (21:42)
[2017-03-17] MEDS: INSULIN DETEMIR 100 UNIT/ML CARTRIDGE SQ SCH (21:42)
[2017-03-18] VITALS (7 sets, daily range): BP systolic 115–140; BP diastolic 71–96
--- NOTE | 2017-03-18 03:35 | NUR ---
RN NOTES PATIENT DIAPHORETIC AND STATED HE FELT REALLY TIRED, BS 49. ADMINISTERED DEXTROSE 50ML ORDERED FOR BS <60. WILL CONTINUE TO MONITOR.
[2017-03-18] MEDS: BLOOD SUGAR DIAGNOSTIC 1 EACH STRIP VI SCH ×4 (06:27→21:17)
--- NOTE | 2017-03-18 06:55 | NUR ---
RN CLOSING NOTES PATIENT RESTING IN BED EASILY AROUSABLE TO NAME. A/O X3. NO SIGNS OF DISTRESS OR DISCOMFORT. BREATHING EVEN AND UNLABORED. ON TELE WITH SB HR 56 NOTED. IV ACCESS IN LAC, PATENT AND INTACT, NO SIGNS OF REDNESS OR INFILTRATION. DENIES ANY PAIN. NO SIGNIFICANT CHANGES THROUGH THE NIGHT. ALL NEEDS MET. BED IN LOW LOCKED POSITION WITH SIDE RAILS X2. CALL LIGHT WITHIN REACH. WILL ENDORSE TO AM SHIFT FOR CHANTEL.
--- NOTE | 2017-03-18 07:40 | NUR ---
MS RN OPENING NOTE PATIENT IS ALERT AND ORIENTED x4. NO PAIN AT THIS TIME. NO SOB OR DISTRESS NOTED. CALL LIGHT WITHIN REACH. SAFETY MEASURES IMPLEMENTED. BED IN LOWEST POSITION WITH SIDERAILS UP X2. IV INTACT AND PATENT NO REDNESS OR SWELLING NOTED. AMBULATORY WITH ASSISTANCE. ABLE TO COMMUNICATE NEEDS. WILL CONTINUE TO MONITOR
[2017-03-18 08:00] LABS: CALCIUM, SERUM 8.5 mg/dL (8.5-10.1); CREATININE 1.1 mg/dL (0.6-1.3); PHOSPHORUS 3.5 mg/dL (2.5-4.9)
[2017-03-18] MEDS: ASPIRIN 325 MG TABLET PO SCH (08:04)
[2017-03-18] MEDS: PANTOPRAZOLE 40 MG TABLET.DR PO SCH (08:04)
[2017-03-18] MEDS: CARVEDILOL 3.125 MG TABLET PO SCH ×2 (08:06→16:50)
[2017-03-18] MEDS: AMIODARONE HCL 200 MG TABLET PO SCH ×2 (08:06→16:49)
[2017-03-18] MEDS: LEVOFLOXACIN (750 MG) 750 MG TABLET PO SCH (09:26)
[2017-03-18] MEDS: INSULIN REGULAR, HUMAN 100 UNIT/ML 3 ML VIAL SQ PRN ×2 (12:19→17:24)
[2017-03-18 17:01] LABS: CALCIUM, SERUM 8.1 mg/dL (8.5-10.1); CREATININE 1.3 mg/dL (0.6-1.3); POTASSIUM 4.2 mmol/L (3.5-5.1)
--- NOTE | 2017-03-18 18:23 | NUR ---
RN CLOSING NOTE PATIENT IS AWAKE IN BED. NO PAIN AT THIS TIME. NO SIGNIFICANT CHANGES. NO SOB OR DISTRESS NOTED. CALL LIGHT WITHIN REACH AT ALL TIMES. SAFETY MEASURES IMPLEMENTED. ABLE TO COMMUNICATE NEEDS. POSSIBLE DISCHARGE TO [facility] TOMORROW. WILL ENDORSE TO LABORER GOLD LEAF NURSE
--- NOTE | 2017-03-18 19:10 | NUR ---
RN OPEN NOTES RECEIVED PATIENT AWAKE IN BED. A/O X3. NO SIGNS OF DISTRESS OR DISCOMFORT. BREATHING EVEN AND UNLABORED. ON TELE WITH SR HR 69 NOTED. IV ACCESS IN LAC, PATENT AND INTACT, NO SIGNS OF REDNESS OR INFILTRATION. DENIES ANY PAIN. BED IN LOW LOCKED POSITION WITH SIDE RAILS X2. CALL LIGHT WITHIN REACH. WILL CONTINUE TO MONITOR.
[2017-03-18] MEDS: INSULIN DETEMIR 100 UNIT/ML CARTRIDGE SQ SCH (21:19)
[2017-03-18] MEDS: *INSULIN REGULAR(HUMULIN R)HUM 100 UNIT/ML VIAL SQ PRN (21:19)
[2017-03-18] MEDS: ATORVASTATIN 10 MG TABLET PO SCH (21:22)
[2017-03-19] VITALS: BP_SYST 126; BP_SYST 128; BP_DIAS 83
[2017-03-19 04:00] VITALS: BP 129/87
[2017-03-19 04:28] VITALS: BP 123/87
--- NOTE | 2017-03-19 06:43 | NUR ---
RN NOTES PATIENT BS 58, REFUSED DEXTROSE X3 WANTS ORANGE JUICE AND LEXUS CRACKERS INSTEAD. NO SIGNS OR SYMPTOMS OF HYPOGLYCEMIA. WILL RECHECK BS AND CONTINUE TO MONITOR.
[2017-03-19 07:05] VITALS: BP 145/95
--- NOTE | 2017-03-19 07:07 | NUR ---
RECHECK BS 79. WILL CONTINUE TO MONITOR.
--- NOTE | 2017-03-19 07:07 | NUR ---
RN CLOSING NOTES PATIENT AWAKE SITTING IN CHAIR. A/O X3. NO SIGNS OF DISTRESS OR DISCOMFORT. BREATHING EVEN AND UNLABORED. ON TELE WITH SR HR 70 NOTED. IV ACCESS IN LAC, PATENT AND INTACT, NO SIGNS OF REDNESS OR INFILTRATION. DENIES ANY PAIN. ALL NEEDS MET. NO SIGNIFICANT CHANGES THROUGH THE NIGHT. BED IN LOW LOCKED POSITION WITH SIDE RAILS X2. CALL LIGHT WITHIN REACH. WILL ENDORSE TO AM SHIFT FOR CHANTEL.
[2017-03-19] MEDS: BLOOD SUGAR DIAGNOSTIC 1 EACH STRIP VI SCH (07:30)
--- NOTE | 2017-03-19 07:30 | NUR ---
BIOLOGICAL SCIENCE AIDE OPENING RECEIVED PATIENT SITTING IN CHAIR. DENIES SOB, DIFFICUTLY BREATHING OR PAIN AT THIS TIME. PATIENT STATES NO NEEDS AND WILL BE DISCHARGED TODAY HE SAYS TO [facility]. PATIENT APPEARS STABLE. CALL LIGHT IN REACH ALL BELONGINGS IN REACH. WILL ROUND Q2H OR LESS
--- NOTE | 2017-03-19 07:50 | NUR ---
MS RN NOTES ACCUCHECK WAS COMPLETED BY NIGHT RN JUST NOT SCANNED
[2017-03-19 08:00] VITALS: BP 149/105
[2017-03-19] MEDS: ASPIRIN 325 MG TABLET PO SCH (08:09)
[2017-03-19] MEDS: PANTOPRAZOLE 40 MG TABLET.DR PO SCH (08:09)
[2017-03-19] MEDS: AMIODARONE HCL 200 MG TABLET PO SCH (08:10)
[2017-03-19 08:11] VITALS: BP 149/105
[2017-03-19] MEDS: CARVEDILOL 3.125 MG TABLET PO SCH (08:11)
[2017-03-19] MEDS: LEVOFLOXACIN (750 MG) 750 MG TABLET PO SCH (10:24)
--- NOTE | 2017-03-19 10:30 | NUR ---
MS RN NOTES PATIENT HAS REDNESS AND A SCAB WITH A BRUISE AROUND IT. PATIENT DOES NOT WANT PHOTO TO BE TAKEN.
--- NOTE | 2017-03-19 11:45 | NUR ---
MS GRAINING OPERATOR PATIENT STABLE NO COMPLICATIONS NO CHANGES. PATIENT AND FAMILY EDUCATED ON DISCHARGE MATERIAL AND STATED UNDERSTANDING. BELONGINGS LIST SIGNED AND ALL ACCOUNTED FOR. PATIENT IV REMOVED PRESSURE AND DRESSING APPLIED NO BLEEDING NOTED. PATIENT REPORT CALLED TO NANCY RAZA AT [facility]. PATIENT ASSITED TO [facility] STABLE NO COMPLICATIONS.
== END 2017-03-19 11:45 | DRG 190 ==
LOC: ER 14:22 → TELE 16:26 → TELE1 03-03 09:47 → TELE-TD 03-03 09:50 → TELE1 03-04 10:46 → MEDSG1 03-05 07:28 → TELE-TD 03-08 05:59 → MEDSG1 03-09 18:21 → TELE1 03-12 14:14 → TELE-TD 03-12 14:27 → ICU 03-12 15:30 → TELE 03-14 18:45
PROVIDERS: ADMIT Internal Medicine; ATTEND Internal Medicine
DX: I21.4 Non-ST elevation (NSTEMI) myocardial infarction (principal); N17.0 Acute kidney failure with tubular necrosis; J69.0 Pneumonitis due to inhalation of food and vomit; I50.23 Acute on chronic systolic (congestive) heart failure; I42.9 Cardiomyopathy, unspecified; D68.59 Other primary thrombophilia; E46 Unspecified protein-calorie malnutrition; I48.92 Unspecified atrial flutter; I48.91 Unspecified atrial fibrillation; I13.0 Hypertensive heart and chronic kidney disease with heart failure and stage 1 through stage 4 chronic kidney disease, or unspecified chronic kidney disease; K21.9 Gastro-esophageal reflux disease without esophagitis; E11.22 Type 2 diabetes mellitus with diabetic chronic kidney disease; N18.9 Chronic kidney disease, unspecified; B96.20 Unspecified Escherichia coli [E. coli] as the cause of diseases classified elsewhere; K76.0 Fatty (change of) liver, not elsewhere classified; E78.5 Hyperlipidemia, unspecified; E66.9 Obesity, unspecified; E86.1 Hypovolemia; E87.1 Hypo-osmolality and hyponatremia; F32.9 Major depressive disorder, single episode, unspecified; G93.89 Other specified disorders of brain; N39.0 Urinary tract infection, site not specified; N50.89 Other specified disorders of the male genital organs; Z82.49 Family history of ischemic heart disease and other diseases of the circulatory system; Z83.3 Family history of diabetes mellitus
CPT/HCPCS: 36415; 70450-TC; 70551-TC; 71010-TC; 76705-TC; 80048-TC; 80053-TC; 80061-TC; 80074; 80076-TC; 81000-TC; 82306; 82570-TC; 82728-TC; 82962-TC; 83540-TC; 83735-TC; 83880; 83935-TC; 84100-TC; 84300-TC; 84439-TC; 84443-TC; 84484-TC; 85025-TC; 85652-TC; 85730-TC; 86592; 86704; 86706; 86709-TC; 87040-TC; 87081-TC; 87086-TC; 87186-TC; 87340; 93307-TC; 94760-TC; 94799-TC; 97001-TC; 97110-TC; 97112-TC; 97116-TC; 97530-TC; A4216; A4606; A6402; J0282; J0360; J1650; J1815; J1940; J1956; J2270; J2405; J3490; J7030; J7050; J7060; J8597; Z7610